=== PATIENT | male | born 1940 | race Caucasian/White ===

== ENCOUNTER 2016-10-07 18:00 | Inpatient (IN) | payer MEDICARE, OTHER ==
--- NOTE | 2016-10-07 18:21 | ER Document Report ---
Addendum entered and electronically signed by DEMETRI BURK NP 10/07/16 18:33 : Course - Re-evaluation Re-evalutation: 10/07/16 18:32 pt has increased confusion since the original fall on 09-25-16 - Vital Signs Vital signs: Temp Pulse Resp BP Pulse Ox 97.5 F 65 18 164/74 H 97 10/07/16 18:12 10/07/16 18:12 10/07/16 18:12 10/07/16 18:12 10/07/16 18:12 Original Note: ED Medical Screen (RME) - General Stated Complaint: RIGHT LEG PAIN/KNEE PAIN, SWELLING Time seen by provider: 18:21 Mode of Arrival: Wheelchair Information source: Patient Notes: 76-year-old male with progressive weakness post subdural brain hematoma , renal mass, (July 2004)in to the lower extremities is no longer able to use his walker. His is having to transfer from the wheelchair to the bed. Today he went to his primary care doctor for an evaluation for PT and OT. He is unable to do any kind of weightbearing and transfer. His primary care doctor sent him to the emergency room concerned about a possible spinal lesion. TRAVEL OUTSIDE OF THE [place] IN LAST 30 DAYS: No - Related Data Allergies/Adverse Reactions: No Known Allergies Allergy (Unverified 03/11/16 09:55) Past Medical History - Past Medical History Cardiac Medical History: Reports: Hx Heart Attack - 1998 , Hx Hypercholesterolemia, Hx Hypertension Denies: Hx Coronary Artery Disease Pulmonary Medical History: Denies: Hx Bronchitis, Hx COPD, Hx Pneumonia Neurological Medical History: Reports: Hx Cerebrovascular Accident - HEMORRHAGIC , RESIDUAL R HEMIPARESIS. Denies: Hx Seizures Endocrine Medical History: Reports: Hx Diabetes Mellitus Type 2 Musculoskeltal Medical History: Denies Hx Arthritis - Immunizations Hx Diphtheria, Pertussis, Tetanus Vaccination: No Physical Exam - Vital signs Vitals: Temp Pulse Resp BP Pulse Ox 97.5 F 65 18 164/74 H 97 10/07/16 18:12 10/07/16 18:12 10/07/16 18:12 10/07/16 18:12 10/07/16 18:12 Course - Vital Signs Vital signs: Temp Pulse Resp BP Pulse Ox 97.5 F 65 18 164/74 H 97 10/07/16 18:12 10/07/16 18:12 10/07/16 18:12 10/07/16 18:12 10/07/16 18:12
[2016-10-07] MEDS ORDERED: FENTANYL CITRATE INJ/PF 100 MCG/2 ML AMPUL IV ONE ×2 (20:38→22:40)
--- NOTE | 2016-10-07 20:40 | ER Document Report ---
ED Extremity Problem, Lower - General Chief Complaint: Leg Pain Stated Complaint: RIGHT LEG PAIN/KNEE PAIN, SWELLING Mode of Arrival: Wheelchair Information source: Patient Notes: Pt is a 76 year old male who presents to the ER TRAVEL OUTSIDE OF THE [place] IN LAST 30 DAYS: No - Related Data Allergies/Adverse Reactions: No Known Allergies Allergy (Unverified 03/11/16 09:55) Past Medical History - General Information source: Patient - Social History Smoking Status: Unknown if Ever Smoked Family History: Reviewed & Not Pertinent Patient has suicidal ideation: No Patient has homicidal ideation: No - Past Medical History Cardiac Medical History: Reports: Hx Heart Attack - 1998 , Hx Hypercholesterolemia, Hx Hypertension Denies: Hx Coronary Artery Disease Pulmonary Medical History: Denies: Hx Bronchitis, Hx COPD, Hx Pneumonia Neurological Medical History: Reports: Hx Cerebrovascular Accident - HEMORRHAGIC , RESIDUAL R HEMIPARESIS. Denies: Hx Seizures Endocrine Medical History: Reports: Hx Diabetes Mellitus Type 2 Musculoskeltal Medical History: Denies Hx Arthritis - Immunizations Hx Diphtheria, Pertussis, Tetanus Vaccination: No Hx Pneumococcal Vaccination: 09/28/10 Physical Exam - Vital signs Vitals: Temp Pulse Resp BP Pulse Ox 97.5 F 65 18 164/74 H 97 10/07/16 18:12 10/07/16 18:12 10/07/16 18:12 10/07/16 18:12 10/07/16 18:12 Course - Vital Signs Vital signs: Temp Pulse Resp BP Pulse Ox 97.5 F 65 18 164/74 H 97 10/07/16 18:12 10/07/16 18:12 10/07/16 18:12 10/07/16 18:12 10/07/16 18:12 - Laboratory Result Diagrams: 10/07/16 20:25 10/07/16 20:25
[2016-10-07 20:47] LABS: ABSOLUTE EOSINOPHILS # (AUTO) 0.2 10^3/uL (0.0-0.6); ABSOLUTE LYMPHOCYTES (AUTO) 1.1 10^3/uL (0.5-4.7); ABSOLUTE MONOCYTES (AUTO) 0.5 10^3/uL (0.1-1.4); ABSOLUTE NEUT (AUTO) 3.4 10^3/uL (1.7-8.2); BASOPHILS % (AUTO) 0.4 % (0-2); EOSINOPHILS % (AUTO) 3.9 % (0-6); LYMPHOCYTES % (AUTO) 20.8 % (13-45); MEAN CORPUSCULAR HEMOGLOBIN 29.9 pg (27.0-33.4); MEAN CORPUSCULAR HGB CONC 34.2 g/dL (32.0-36.0); MEAN CORPUSCULAR VOLUME 87 fl (80-97); MONOCYTES % (AUTO) 9.6 % (3-13); RED BLOOD COUNT 4.35 10^6/uL (4.35-5.55); RED CELL DISTRIBUTION WIDTH 14.8 % (11.5-14.0); SEGMENTED NEUTROPHILS % (AUTO) 65.3 % (42-78); WHITE BLOOD COUNT 5.2 10^3/uL (4.0-10.5)
[2016-10-07 20:55] LABS: PROTHROMBIN TIME 14.1 SEC (11.4-15.4)
[2016-10-07 21:01] LABS: ALANINE AMINOTRANSFERASE 63 U/L (21-72); ALBUMIN 3.9 g/dL (3.5-5.0); ALKALINE PHOSPHATASE 96 U/L (38-126); ANION GAP 14 (5-19); ASPARTATE AMINO TRANSFERASE 64 U/L (17-59); BILIRUBIN,TOTAL 0.6 mg/dL (0.2-1.3); BLOOD UREA NITROGEN 12 mg/dL (7-20); CALCIUM 10.2 mg/dL (8.4-10.2); CARBON DIOXIDE 25 mmol/L (22-30); CHLORIDE 104 mmol/L (98-107); CREATININE RESULT 0.73 mg/dL (0.52-1.25); GLUCOSE 118 mg/dL (75-110); MAGNESIUM 1.4 mg/dL (1.6-2.3); POTASSIUM 4.2 mmol/L (3.6-5.0); SODIUM 142.8 mmol/L (137-145); TOTAL PROTEIN 6.9 g/dL (6.3-8.2)
[2016-10-07 22:21] LABS: APPEARANCE,URINE CLEAR; BILIRUBIN,URINE NEGATIVE (NEGATIVE); GLUCOSE, URINE NEGATIVE (NEGATIVE); KETONES,URINE NEGATIVE (NEGATIVE); LEUKOCYTE ESTERASE,URINE NEGATIVE (NEGATIVE); NITRITE,URINE NEGATIVE (NEGATIVE); PROTEIN,URINE NEGATIVE (NEGATIVE); URINE SPECIFIC GRAVITY 1.004; UROBILINOGEN,URINE NEGATIVE mg/dL (<2.0)
--- NOTE | 2016-10-07 22:48 | ER Document Report ---
ED Extremity Problem, Lower - General Chief Complaint: Leg Pain Stated Complaint: RIGHT LEG PAIN/KNEE PAIN, SWELLING Mode of Arrival: Wheelchair Information source: Patient, Relative Notes: Pt is a 76-year-old male who is brought into the ER today for right hip and leg pain progressively worsening since a fall on September 25. He has seen his primary care provider who sent him to the emergency department today for an MRI to rule out spinal lesion causing Brown Sequard syndrome. Patient denies any numbness or tingling to the leg, paralysis of anywhere, any other trauma other than the fall on the . Family states that he was using a walker at home because he has a history of right-sided weakness from a subdural hematoma in 2003, but he is no longer able to ambulate at all due to the pain, even using walker and family is having to transfer him from sitting to the bed constantly and that he screams in pain each time. They denie that he's had any fever/ chills. They deny that he's had any loss of bladder or bowel function. TRAVEL OUTSIDE OF THE [place] IN LAST 30 DAYS: No - Related Data Allergies/Adverse Reactions: No Known Allergies Allergy (Unverified 03/11/16 09:55) Home Medications: Current Home Medications Aspirin [Aspirin 81 mg Chewable Tablet] 81 mg PO DAILY 10/08/16 [History] Atorvastatin Calcium [Lipitor 10 mg Tablet] 10 mg PO QHS 10/08/16 [History] Baclofen [Baclofen 10 mg Tablet] 10 mg PO TID 10/08/16 [History] Finasteride [Proscar 5 mg Tablet] 5 mg PO DAILY 10/08/16 [History] Glimepiride [Amaryl 1 mg Tablet] 1 mg PO BID 10/08/16 [History] Hydrocodone/Acetaminophen [[place] 5-325 mg Tablet] 1 tab PO Q6 10/08/16 [History] Losartan Potassium [Cozaar 50 mg Tablet] 50 mg PO DAILY 10/08/16 [History] Metformin HCl [Metformin HCl ER] 500 mg PO TID 10/08/16 [History] Metoprolol Tartrate [Lopressor 25 mg Tablet] 25 mg PO Q12 10/08/16 [History] Multivitamin [Daily Multiple Vitamin] 1 tab PO DAILY 10/08/16 [History] Niacin (Inositol Niacinate) [Niacin 500 mg Capsule] 1,000 mg PO QHS 10/08/16 [ History] [place]-3 Fatty Acids/Fish Oil [[place]-3 1,000 Mg Softgel] 1,000 cap PO DAILY 10/08 [History] Sertraline HCl [Zoloft 50 mg Tablet] 50 mg PO DAILY 10/08/16 [History] Past Medical History - General Information source: Patient - Social History Smoking Status: Unknown if Ever Smoked Family History: Reviewed & Not Pertinent Patient has suicidal ideation: No Patient has homicidal ideation: No - Past Medical History Cardiac Medical History: Reports: Hx Heart Attack - 1998 , Hx Hypercholesterolemia, Hx Hypertension Denies: Hx Coronary Artery Disease Pulmonary Medical History: Denies: Hx Bronchitis, Hx COPD, Hx Pneumonia Neurological Medical History: Reports: Hx Cerebrovascular Accident - HEMORRHAGIC , RESIDUAL R HEMIPARESIS. Denies: Hx Seizures Endocrine Medical History: Reports: Hx Diabetes Mellitus Type 2 Musculoskeltal Medical History: Denies Hx Arthritis - Immunizations Hx Diphtheria, Pertussis, Tetanus Vaccination: No Hx Pneumococcal Vaccination: 09/28/10 Review of Systems - Review of Systems Constitutional: No symptoms reported EENT: No symptoms reported Cardiovascular: No symptoms reported Respiratory: No symptoms reported Gastrointestinal: No symptoms reported Genitourinary: No symptoms reported Male Genitourinary: No symptoms reported Musculoskeletal: See HPI Skin: No symptoms reported Hematologic/Lymphatic: No symptoms reported Neurological/Psychological: No symptoms reported Physical Exam - Vital signs Vitals: Temp Pulse Resp BP Pulse Ox 97.5 F 65 18 164/74 H 97 10/07/16 18:12 10/07/16 18:12 10/07/16 18:12 10/07/16 18:12 10/07/16 18:12 - Notes Notes: PHYSICAL EXAMINATION: GENERAL: Appears uncomfortable, otherwise in no acute distress. HEAD: Atraumatic, normocephalic. EYES: Pupils equal round and reactive to light, extraocular movements intact, sclera anicteric, conjunctiva are normal. NECK: Normal range of motion, supple without lymphadenopathy LUNGS: CTAB and equal. No wheezes rales or rhonchi. HEART: Regular rate and rhythm without murmurs ABDOMEN: Soft, no tenderness. No guarding, no rebound BACK: Lumbar vertebral tenderness, normal ROM GI/: no CVA tenderness EXTREMITIES: tender to entirety of lateral right hip, upper and lower leg, decreased range of motion secondary to pain, no pitting edema. No cyanosis. NEUROLOGICAL: Cranial nerves grossly intact. Normal sensory/motor exams. PSYCH: Normal mood, normal affect. SKIN: Warm, Dry, normal turgor, no rashes or lesions noted Course - Re-evaluation Re-evalutation: 10/07/16 22:46 [facility] was called where pt had subdural evacuation in 2003 and they state that no stents/shunts were placed at all during surgery for this. Pt is on his way to MRI now to rule out lesion causing progressive leg pain. Pt tolerated fentanyl well and it helped with pain. 10/08/16 00:25 MRI was attempted multiple times tonight after giving the patient fentanyl, dilaudid, ativan and we were going to try versed, but pt could not be monitored while inside MRI machine. All of these attempts failed as patient would not sit still for MRI and screamed the entire time. At this time family is refusing to take him home, stating that they "can't handle him." labwork was ordered before I got him and all unremarkable. Pt hasn't however had actual hip, femur or tib fib x rays and so at this time I have ordered x rays of those things to make sure we haven't missed anything. 10/08/16 00:42 10/08/16 02:00 x rays of hip, femur and tib/fib report a femoral neck fracture with slight lateral displacement and a possible fib fracture. Ortho called at this time and agrees that patient meets criteria for admission. 10/08/16 02:26 - Vital Signs Vital signs: Temp Pulse Resp BP Pulse Ox 97.6 F 79 18 148/54 H 98 10/08/16 16:36 10/08/16 16:36 10/08/16 16:36 10/08/16 16:36 10/08/16 16:36 - Laboratory Result Diagrams: 10/08/16 09:44 10/07/16 20:25 Laboratory results interpreted by me: 10/07/16 10/07/16 10/08/16 20:25 20:25 07:22 Hgb 13.0 L RDW 14.8 H Plt Count 49 L Glucose 118 H POC Glucose 149 H Magnesium 1.4 L AST 64 H Discharge - Discharge Clinical Impression: Femoral neck fracture Qualifiers: Encounter type: initial encounter Fracture type: closed Laterality: right Qualified Code(s): S72.001A - Fracture of unspecified part of neck of right femur, initial encounter for closed fracture Condition: Stable Disposition: ADMITTED INPATIENT Admitting Provider: Hospitalist Unit Admitted: Medical Floor
[2016-10-07] MEDS ORDERED: MIDAZOLAM 2 MG/2 ML INJ IV ONE (22:57)
[2016-10-07] MEDS ORDERED: LORAZEPAM INJ 2 MG/1 ML VIAL IV ONE (23:13)
[2016-10-07] MEDS ORDERED: HYDROMORPHONE HCL INJ/PF 2 MG/ML AMPULE IV ONE (23:32)
[2016-10-08] MEDS ORDERED: MAGNESIUM SULFATE/D5W 1 GM/100 ML RTUPB IV ONE (06:14)
[2016-10-08] MEDS ORDERED: DEXTROSE 50%-WATER 25 GM/50 ML DISP.SYRIN IV PRN ×2 (08:43)
[2016-10-08] MEDS ORDERED: GLUCAGON,HUMAN RECOMB 1 MG INJ IM PRN (08:43)
[2016-10-08] MEDS ORDERED: DEXTROSE 40% GEL 15 GM TUBE PO PRN ×2 (08:43)
[2016-10-08] MEDS ORDERED: INSULIN LISPRO 100 UNIT/ML 3 ML VIAL SUBCUT PRN (08:43)
[2016-10-08] MEDS ORDERED: ACETAMINOPHEN 650 MG SUPP.RECT PR PRN (08:55)
--- NOTE | 2016-10-08 09:49 | PDOC H&P ---
History of Present Illness Admission Date/PCP: 10/08/16 02:36 KAVON PULLIAM MD Patient complains of: right hip and leg pain History of Present Illness: TRACI FLORES is a 76 year old male sent to the emergency room by his primary care provider for concern of a possible spinal cord injury/lesion causing the above complaints. Patient has been discussed with emergency room nurse practitioner who evaluated the patient. At no point during this discussion was there any mention made of concern for possible problem with patient's spinal cord. This information was noted upon review of his paper chart after the patient had been admitted to the hospitalist service and was on the floor. Patient was presented as a basic fall with hip fracture. Prior to my being called, nurse practitioner had discussed the patient with on-call orthopedist, who has agreed to manage the patient's orthopedic injuries. Patient is sedated and is able to provide no history whatsoever in terms of acute or chronic events, review of systems, personal habits, family history, etc. No friends or family are present. No Old inpatient records are available for review.. According to emergency room notes, patient has a history of a subdural hematoma in 2003, with resulting right-sided weakness, normally able to ambulate with a walker. Patient suffered a fall September 25 and has had progressive pain involving his right hip and leg, now to the point where he simply is not able to ambulate at all. Please refer to emergency room notes, which are reviewed. Laboratory results are listed in [facility] and are reviewed. X-ray summary results are listed below, with full report(s) reviewed. . EKG reviewed and compared to prior tracing from March 11 of last year. Social history/personal habits: Information not available this point in time. Family History : Information not available this point in time. Allergies/adverse reactions NKDA. Home medications are reviewed from the list compiled in [facility].. Home medications initially autopopulated into [facility] may not accurately reflect patient's true medications, dosages, and/or frequencies. REVIEW OF SYSTEMS: See history and present illness. No further information available this point in time. PHYSICAL EXAMINATION: 5 feet 11 inches tall. 99.5 kg. BMI 30.6 kg/m. Blood pressure 130/57. Pulse 87 and regular. 90% saturation on 2 L oxygen per nasal cannula. Respirations are 16 and unlabored. Temperature 98.2. Obese otherwise well-developed male appearing in number of views younger than his stated age. Somnolent. Does awaken briefly when spoken to in a normal volume voice, but fairly quickly falls back asleep. Maintaining his airway well. Skin is warm and dry. No grossly obvious evidence of rash in areas of skin examined. No subcutaneous nodules palpated. ENT: Hearing grossly normal to normal conversation. Will not protrude tongue on request. Eyes: No scleral icterus. Pupils equal and reactive to light at 4 mm. [place] conjunctivae. No raccoon eyes. Neck is nontender to palpation. Midline trachea. No palpable thyroid nodule mass enlargement or tenderness. Lymphatic: No palpable cervical or clavicular nodes. Neck and lymphatic exams limited by patient body habitus. Psychiatric: Can't be adequately evaluated due to his current status. Lungs: Auscultation reveals clear and equal breath sounds bilaterally. No use of accessory respiratory muscles. Cardiovascular: Heart regular rate and rhythm, without gallop murmur or rub. No carotid or abdominal aortic bruits. No ankle or pedal edema. Faintly palpable dorsalis pedis pulses. Abdomen: soft, somewhat obese, nontender with positive bowel sounds. Unable to adequately evaluate abdomen for masses or organomegaly due to body habitus. Extremities: [Feet are warm and dry. No calf tenderness to compression. No grossly obvious visual evidence of calf swelling. Manipulation of right lower extremity not attempted due to his injury; similar limitation on manipulation of left lower extremity, with any movement at all of the site of injury causing pronounced pain. Neurologic: Absent Babinski. Light touch can't be adequately evaluated due to his current status. Past Medical History Cardiac Medical History: Reports: Myocardial Infarction - 1998 , Hyperlipidema, Hypertension Denies: Coronary Artery Disease Pulmonary Medical History: Denies: Bronchitis, Chronic Obstructive Pulmonary Disease (COPD), Pneumonia Neurological Medical History: Denies: Seizures Endocrine Medical History: Reports: Diabetes Mellitus Type 2 Musculoskeltal Medical History: Denies: Arthritis Hematology: Reports: Anemia Social History Information Source: Emergency Med Personnel, [facility] Records Smoking Status: Unknown if Ever Smoked - Advance Directive Resuscitation Status: Full Code Surrogate healthcare decision maker:: Uncertain at this point in time. Family History Family History: Reviewed & Not Pertinent Parental Family History Reviewed: No - no information available this point in time. Children Family History Reviewed: No Sibling(s) Family History Reviewed.: No Medication/Allergy Home Medications: Aspirin [Aspirin 81 mg Chewable Tablet] 81 mg PO DAILY 10/08/16 Atorvastatin Calcium [Lipitor 10 mg Tablet] 10 mg PO QHS 10/08/16 Baclofen [Baclofen 10 mg Tablet] 10 mg PO TID 10/08/16 Finasteride [Proscar 5 mg Tablet] 5 mg PO DAILY 10/08/16 Glimepiride [Amaryl 1 mg Tablet] 1 mg PO BID 10/08/16 Hydrocodone/Acetaminophen [[place] 5-325 mg Tablet] 1 tab PO Q6 10/08/16 Losartan Potassium [Cozaar 50 mg Tablet] 50 mg PO DAILY 10/08/16 Metformin HCl [Metformin HCl ER] 500 mg PO TID 10/08/16 Metoprolol Tartrate [Lopressor 25 mg Tablet] 25 mg PO Q12 10/08/16 Multivitamin [Daily Multiple Vitamin] 1 tab PO DAILY 10/08/16 Niacin (Inositol Niacinate) [Niacin 500 mg Capsule] 1,000 mg PO QHS 10/08/16 [place]-3 Fatty Acids/Fish Oil [[place]-3 1,000 Mg Softgel] 1,000 cap PO DAILY 10/08 Sertraline HCl [Zoloft 50 mg Tablet] 50 mg PO DAILY 10/08/16 Allergies/Adverse Reactions: No Known Allergies Allergy (Unverified 03/11/16 09:55) Physical Exam Vital Signs: Temp Pulse Resp BP Pulse Ox 98.0 F 100 16 122/62 96 10/08/16 07:48 10/08/16 07:48 10/08/16 07:48 10/08/16 07:48 10/08/16 07:48 Results Impressions: Hip/Pelvis X-Ray 10/08/16 00:33 IMPRESSION: Subcapital fracture of the right femoral neck. Femur X-Ray 10/08/16 00:39 IMPRESSION: The femoral shaft is intact. Tibia/Fibula X-Ray 10/08/16 00:39 IMPRESSION: Linear lucency along the distal fibular incompletely imaged. Assessment & Plan - Diagnosis (1) Elevated LFTs Is this a current diagnosis for this admission?: YesPlan: Mild; history of same by review of old lab values. Uncertain etiology. (2) Fracture of femoral neck, right Qualifiers: Encounter type: initial encounter Fracture type: closed Qualified Code(s): S72.001A - Fracture of unspecified part of neck of right femur, initial encounter for closed fracture Is this a current diagnosis for this admission?: YesPlan: Orthopedics consult. Knee high SCDs for DVT prophylaxis; with thrombocytopenia, will forego Lovenox or heparin at this point in time. Due to [employer] downtime, basic handwritten order packet was utilized and faxed earlier to patient's inpatient san. Time spent in evaluation and management of patient: 65 minutes. (3) Hypomagnesemia Is this a current diagnosis for this admission?: YesPlan: Magnesium supplement. (4) Thrombocytopenia Is this a current diagnosis for this admission?: YesPlan: Hematology consult. (5) Brown-Sequard syndrome Is this a current diagnosis for this admission?: YesPlan: Due to his level of sedation, adequate neurologic exam cannot be accomplished. At 5:17 AM, 10/08/2016, voicemail was left with Dr. Han, water pollution scientist neurology at our facility. 5:20 AM, I spoke with the transfer center at [facility], requesting telephone consult with the on-call neurologist. At 5:30 AM, patient was discussed in detail with Dr. Strauss, on-call neurologist at [facility]. He felt that with the length of time between patient's likely initial injury and the present time, that urgent imaging was not warranted. He agreed with plans to obtain local neurology consult for evaluation after the patient was more lucid and alert. At 6 AM, patient was discussed in detail by telephone with Dr. Han, on-call neurologist at our facility. He has agreed to see the patient in consultation. He also agreed with recommendations made by the above neurologist from [facility]. Orders have been entered and discussed with nursing staff to maintain spine precautions, logroll only, with Blackwell collar. Patient has been discussed in detail with daytime hospitalist team. (6) Right fibular fracture Qualifiers: Encounter type: initial encounter Fracture type: closed Fracture morphology: unspecified fracture morphology Is this a current diagnosis for this admission?: Yes - Inpatient Certification Based on my medical assessment, after consideration of the patient's comorbidities, presenting symptoms, or acuity I expect that the services needed warrant INPATIENT care.: Yes I certify that my determination is in accordance with my understanding of Medicare's requirements for reasonable and necessary INPATIENT services [42 CFR 412.3e].: Yes Medical Necessity: Need For Continuous Telemetry Monitoring, Need for Pain Control, Need for Surgery, Risk of Complication if Not Cared For in Hospital, Risk of Diagnosis Which Will Require Inpatient Eval/Care/Monitoring Post Hospital Care: D/C or Transfer Summary
[2016-10-08 09:54] LABS: HEMATOCRIT 37.3 % (37.9-51.0); HEMOGLOBIN 12.9 g/dL (13.5-17.0); HGB HCT DIFFERENCE 1.4; MEAN CORPUSCULAR HEMOGLOBIN 30.2 pg (27.0-33.4); MEAN CORPUSCULAR HGB CONC 34.5 g/dL (32.0-36.0); MEAN CORPUSCULAR VOLUME 87 fl (80-97); RED BLOOD COUNT 4.27 10^6/uL (4.35-5.55); RED CELL DISTRIBUTION WIDTH 14.8 % (11.5-14.0); WHITE BLOOD COUNT 4.9 10^3/uL (4.0-10.5)
[2016-10-08] MEDS ORDERED: MORPHINE SULFATE 10 MG/ML INJ IV ONE (13:00)
--- NOTE | 2016-10-08 13:37 | EKG REPORT ---
SEVERITY:- ABNORMAL ECG - SINUS RHYTHM LVH WITH SECONDARY REPOLARIZATION ABNORMALITY : Confirmed by: Manisha Ley MD 08-Oct-2016 13:37:18
[2016-10-08] MEDS: MORPHINE SULFATE 10 MG/ML INJ IV PRN (16:57)
--- NOTE | 2016-10-08 17:45 | PDOC PROGRESS REPORT ---
Subjective Progress Note for:: 10/08/16 Subjective:: History of Present Illness: TRACI FLORES is a 76 year old male sent to the emergency room by his primary care provider for concern of a possible spinal cord injury/lesion causing the above complaints. Patient was presented as a basic fall with hip fracture. At no point during this discussion was there any mention made of concern for possible problem with patient's spinal cord. This information was noted upon review of his paper chart after the patient had been admitted to the hospitalist service and was on the floor. Prior to my being called, nurse practitioner had discussed the patient with on-call orthopedist, who has agreed to manage the patient's orthopedic injuries. According to emergency room notes, patient has a history of a subdural hematoma in 2003, with resulting right-sided weakness, normally able to ambulate with a walker. Patient suffered a fall September 25 and has had progressive pain involving his right hip and leg, now to the point where he simply is not able to ambulate at all. 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 Daughter goes on to report the discoloration fits pattern of the patient's shorts he wheres to his Grandson's every outdoor sporting activity and is unchanged from this past Summer. Physical Exam Vital Signs: Temp Pulse Resp BP Pulse Ox 98.0 F 100 16 122/62 96 10/08/16 07:48 10/08/16 07:48 10/08/16 07:48 10/08/16 07:48 10/08/16 07:48 General appearance: ABSENT: no acute distress Eye exam: PRESENT: EOMI, PERRLA. ABSENT: conjunctival injection, nystagmus Mouth exam: PRESENT: moist, neck supple - Collar in place Respiratory exam: PRESENT: clear to auscultation pam, unlabored. ABSENT: accessory muscle use Pulses: PRESENT: normal radial pulses, normal dorsalis pedis pul GI/Abdominal exam: PRESENT: normal bowel sounds, soft. ABSENT: tenderness Musculoskeletal exam: PRESENT: other - No step-off deformities, areas of ecchymosis, or swelling. ABSENT: full ROM - to weakness of the Rtd Neurological exam: PRESENT: alert, awake, oriented to person, oriented to place , oriented to situation, other - right facial droop and blunting of the nasolabial fold; Rt arm and leg 2/5 strength with decreased muscle tone.. ABSENT: oriented to time Psychiatric exam: PRESENT: appropriate affect, normal mood Skin exam: PRESENT: dry, warm Results Laboratory Results: 10/08/16 09:44 10/08/16 10/08/16 09:44 09:44 WBC 4.9 RBC 4.27 L Hgb 12.9 L Hct 37.3 L MCV 87 MCH 30.2 MCHC 34.5 RDW 14.8 H Plt Count 55 L Magnesium 1.7 Impressions: Hip/Pelvis X-Ray 10/08/16 00:33 IMPRESSION: Subcapital fracture of the right femoral neck. Femur X-Ray 10/08/16 00:39 IMPRESSION: The femoral shaft is intact. Tibia/Fibula X-Ray 10/08/16 00:39 IMPRESSION: Linear lucency along the distal fibular incompletely imaged. Assessment & Plan - Diagnosis (1) Fracture of femoral neck, right Qualifiers: Encounter type: initial encounter Fracture type: closed Qualified Code(s): S72.001A - Fracture of unspecified part of neck of right femur, initial encounter for closed fracture Is this a current diagnosis for this admission?: YesPlan: Dr. Brock consulted (2) Right fibular fracture Qualifiers: Encounter type: initial encounter Fracture type: closed Fracture morphology: unspecified fracture morphology Is this a current diagnosis for this admission?: YesPlan: Possible radiographic artifact. Defer to orthopedic surgery for further evaluation. (3) Elevated LFTs Is this a current diagnosis for this admission?: YesPlan: Mild and of unclear significance. Trend. (4) Hypomagnesemia Is this a current diagnosis for this admission?: YesPlan: Replace and monitor (5) Thrombocytopenia Is this a current diagnosis for this admission?: YesPlan: Hematology consulted. Apparently a chronic problem for him. Etiology unclear but may need transfusion prior to surgery. 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 At baseline. (7) Brown-Sequard syndrome Is this a current diagnosis for this admission?: NoPlan: Ruled out. Neurology consult and does not feel his clinical condition fits with this syndrome. Okay to remove soft collar and DC spine precautions. - Time Time Spent with patient: 35 or more minutes Disposition: Will likely need rehabilitation placement
--- NOTE | 2016-10-08 18:03 | CONSULTATION REPORT E ---
Consultation Report NAME: TRACI FLORES : 1940 AGE: 76Y DATE: 10/08/2016 434 A TO: AMIRA KEBEED M.D. FROM: DINORA GRULLON M.D. Requesting Physician REASON FOR REFERRAL: Thrombocytopenia. HISTORY OF PRESENT ILLNESS: The patient is a 76-year-old man who was admitted on 10/08/2016. Reason for admission is history of fall with possible hip fracture. He was noted on admission to have a low platelet count. He was a 76-year-old man who has had progressively worsening pain in the right hip and leg following a fall on 09/25/2016. His [id number] who was sitting at his bedside today explained to me that he has always had thrombocytopenia and was followed a hematemesis, Dr. Whitt in [place]. She is not exactly sure of how low his platelet count has been. His has more information with regards to that. It has not been noted at home that he was bleeding or bruising more easily. PAST MEDICAL HISTORY: As stated above includes: 1. History of thrombocytopenia. 2. He had a heart attack in 1998. 3. History of hypercholesterolemia. 4. History of coronary artery disease. 5. Bronchitis. 6. COPD. REVIEW OF SYSTEMS: As stated above. PHYSICAL EXAMINATION: GENERAL: On exam, he is an elderly man. He is alert and he answers a few questions. LABORATORY: White count 5.2, hemoglobin 13, platelet count 49,000. IMPRESSION AND PLAN: The patient is a 76-year-old man with a history of thrombocytopenia, this appears to be chronic. I will try and obtain his records from [place] to shed more light as to the workup that has been done in the past and the etiology of his thrombocytopenia. In the interim, I will suggest antiplatelet antibodies be requested. He is yet to be seen by orthopedics. His surgery is planned. He will most probably need a platelet count of 75,000 or greater. I will see what therapy he has received in the past, if he has been transfused successfully with platelets. I explained this to the [id number] and to the patient. I will see him back as needed. I thank you for this consultation and allowing me to be part of his care. DICTATING PHYSICIAN: AMIRA KEBEDE M.D. [id number] PHY#: [id number] ID: [id number] JOB#: [id number] ACCT: [id number] cc:AMIRA KEBEDE M.D. >
[2016-10-08] MEDS: ATORVASTATIN CALCIUM 10 MG TABLET PO SCH (21:52)
[2016-10-08] MEDS: METOPROLOL TARTRATE 25 MG TABLET PO SCH (21:52)
--- NOTE | 2016-10-08 21:58 | PDOC CONSULTATION ---
History of Present Illness Admission Date/PCP: 10/08/16 08:42 KAVON PULLIAM MD Patient complains of: Right hip pain History of Present Illness: TRACI FLORES is a 76 year old male sent to the emergency room by his primary care provider for concern of a possible spinal cord injury/lesion causing the above complaints. A complete history limited given patient's dementia. Patient's son at bedside. According to the son he sustained a fall onto concrete on his right hip on . Patient was seen at the emergency room where no underlying traumatic fractures were identified. Since that point they had been transferring him from bed to a wheelchair. Until the past few days he has been complaining more and more of right lower extremity pain. According to the patient's son he is relatively nonambulatory but has been complaining of fairly severe pain with any motion of the hip which has improved with rest and medication. Past Medical History Cardiac Medical History: Reports: Myocardial Infarction - 1998 , Hyperlipidema, Hypertension Denies: Coronary Artery Disease Pulmonary Medical History: Denies: Bronchitis, Chronic Obstructive Pulmonary Disease (COPD), Pneumonia Neurological Medical History: Denies: Seizures Endocrine Medical History: Reports: Diabetes Mellitus Type 2 Musculoskeltal Medical History: Denies: Arthritis Hematology: Reports: Anemia Social History Smoking Status: Unknown if Ever Smoked - Advance Directive Resuscitation Status: Full Code Family History Family History: Reviewed & Not Pertinent Parental Family History Reviewed: No Children Family History Reviewed: No Sibling(s) Family History Reviewed.: No Medication/Allergy Home Medications: Aspirin [Aspirin 81 mg Chewable Tablet] 81 mg PO DAILY 10/08/16 Atorvastatin Calcium [Lipitor 10 mg Tablet] 10 mg PO QHS 10/08/16 Baclofen [Baclofen 10 mg Tablet] 10 mg PO TID 10/08/16 Finasteride [Proscar 5 mg Tablet] 5 mg PO DAILY 10/08/16 Glimepiride [Amaryl 1 mg Tablet] 1 mg PO BID 10/08/16 Hydrocodone/Acetaminophen [S [place] 5-325 mg Tablet] 1 tab PO Q6 10/08/16 Losartan Potassium [Cozaar 50 mg Tablet] 50 mg PO DAILY 10/08/16 Metformin HCl [Metformin HCl ER] 500 mg PO TID 10/08/16 Metoprolol Tartrate [Lopressor 25 mg Tablet] 25 mg PO Q12 10/08/16 Multivitamin [Daily Multiple Vitamin] 1 tab PO DAILY 10/08/16 Niacin (Inositol Niacinate) [Niacin 500 mg Capsule] 1,000 mg PO QHS 10/08/16 [place]-3 Fatty Acids/Fish Oil [[place]-3 1,000 Mg Softgel] 1,000 cap PO DAILY 10/08 Sertraline HCl [Zoloft 50 mg Tablet] 50 mg PO DAILY 10/08/16 Allergies/Adverse Reactions: No Known Allergies Allergy (Unverified 03/11/16 09:55) Review of Systems ROS unobtainable: Due to mental status Physical Exam Vital Signs: Temp Pulse Resp BP Pulse Ox 98.0 F 92 20 151/62 H 95 10/08/16 20:02 10/08/16 20:02 10/08/16 20:02 10/08/16 20:02 10/08/16 20:02 Intake & Output 10/07/16 10/08/16 10/09/16 06:59 06:59 06:59 Intake Total 784 Balance 784 General appearance: PRESENT: no acute distress, cooperative Head exam: PRESENT: atraumatic, normocephalic Eye exam: PRESENT: other - sclerae anicteric, conjunctival normal Ear exam: PRESENT: normal external ear exam Mouth exam: PRESENT: moist, tongue midline Neck exam: PRESENT: full ROM. ABSENT: carotid bruit, JVD, lymphadenopathy, thyromegaly Respiratory exam: PRESENT: unlabored Cardiovascular exam: PRESENT: RRR. ABSENT: diastolic murmur, rubs, systolic murmur Pulses: PRESENT: normal dorsalis pedis pul, +2 pedal pulses bilateral Vascular exam: PRESENT: normal capillary refill GI/Abdominal exam: PRESENT: normal bowel sounds, soft. ABSENT: distended, guarding, mass, organolmegaly, rebound, tenderness Rectal exam: PRESENT: deferred Musculoskeletal exam: PRESENT: other - Right lower extremity short and externally rotated. Positive log roll. Limited neurologic examination secondary to patient's pain. Patient has tenderness along the distal fibula. With mild swelling. No evidence of skin breakdown. No calf tenderness. Neurological exam: PRESENT: alert, awake, oriented to person, oriented to place. ABSENT: motor sensory deficit Psychiatric exam: PRESENT: appropriate affect, normal mood. ABSENT: homicidal ideation, suicidal ideation Skin exam: PRESENT: dry, intact, warm. ABSENT: cyanosis, rash Results Laboratory Results: 10/08/16 09:44 10/08/16 10/08/16 09:44 09:44 WBC 4.9 RBC 4.27 L Hgb 12.9 L Hct 37.3 L MCV 87 MCH 30.2 MCHC 34.5 RDW 14.8 H Plt Count 55 L Magnesium 1.7 Impressions: Hip/Pelvis X-Ray 10/08/16 00:33 IMPRESSION: Subcapital fracture of the right femoral neck. Femur X-Ray 10/08/16 00:39 IMPRESSION: The femoral shaft is intact. Tibia/Fibula X-Ray 10/08/16 00:39 IMPRESSION: Linear lucency along the distal fibular incompletely imaged. Status: Image reviewed by me - I have reviewed patient's radiographs which are limited but do demonstrate right displaced femoral neck fracture. Question distal fibula fracture which may be secondary to possible artifact. Assessment & Plan - Diagnosis (1) Fracture of femoral neck, right Qualifiers: Encounter type: initial encounter Fracture type: closed Qualified Code(s): S72.001A - Fracture of unspecified part of neck of right femur, initial encounter for closed fracture Is this a current diagnosis for this admission?: YesPlan: At this point given the patient's pain consideration for operative intervention is reasonable. I discussed possible treatment with the patient's son including nonoperative versus operative intervention. After discussing risks and benefits of the procedure and the details of the procedure patient's family is verbalizes understanding. Risks include anesthetic complications, excessive bleeding, infection, injury to surrounding nerves, vessels and tendons, bruising , healing difficulties, scar formation, posttraumatic arthritis and any unforseen complication. Also patient has evidence of thrombocytopenia which further increases his risk of bleeding intraoperatively prior to proceed with operative intervention we would like his platelet count to be 75 and thus we will continue to monitor this and his other medical issues. Once he is medically optimized we will proceed with operative intervention. Current plan is possible surgery Thursday or Thursday. (2) Right fibular fracture Qualifiers: Encounter type: initial encounter Fracture type: closed Fracture morphology: unspecified fracture morphology Is this a current diagnosis for this admission?: Yes
[2016-10-09] MEDS: MORPHINE SULFATE 10 MG/ML INJ IV PRN (02:15)
[2016-10-09 06:49] LABS: HEMATOCRIT 39.3 % (37.9-51.0); HEMOGLOBIN 13.4 g/dL (13.5-17.0); HGB HCT DIFFERENCE 0.9; MEAN CORPUSCULAR HEMOGLOBIN 30.1 pg (27.0-33.4); MEAN CORPUSCULAR HGB CONC 34.2 g/dL (32.0-36.0); MEAN CORPUSCULAR VOLUME 88 fl (80-97); RED BLOOD COUNT 4.45 10^6/uL (4.35-5.55); RED CELL DISTRIBUTION WIDTH 14.5 % (11.5-14.0); WHITE BLOOD COUNT 7.9 10^3/uL (4.0-10.5)
[2016-10-09 07:11] LABS: ALANINE AMINOTRANSFERASE 57 U/L (21-72); ALBUMIN 3.6 g/dL (3.5-5.0); ALKALINE PHOSPHATASE 93 U/L (38-126); ANION GAP 10 (5-19); ASPARTATE AMINO TRANSFERASE 72 U/L (17-59); BILIRUBIN,TOTAL 0.7 mg/dL (0.2-1.3); BLOOD UREA NITROGEN 12 mg/dL (7-20); CALCIUM 9.7 mg/dL (8.4-10.2); CARBON DIOXIDE 30 mmol/L (22-30); CHLORIDE 102 mmol/L (98-107); CREATININE RESULT 0.74 mg/dL (0.52-1.25); GLUCOSE 126 mg/dL (75-110); MAGNESIUM 1.6 mg/dL (1.6-2.3); POTASSIUM 4.3 mmol/L (3.6-5.0); SODIUM 142.3 mmol/L (137-145); TOTAL PROTEIN 6.6 g/dL (6.3-8.2)
[2016-10-09] MEDS: MULTIVITAMIN TABLET PO SCH (10:47)
[2016-10-09] MEDS: ASPIRIN 81 MG TABLET, CHEWABLE PO SCH (10:47)
[2016-10-09] MEDS: LOSARTAN POTASSIUM 50 MG TABLET PO SCH (10:48)
[2016-10-09] MEDS: SERTRALINE HCL 50 MG TABLET PO SCH (10:49)
[2016-10-09] MEDS: METOPROLOL TARTRATE 25 MG TABLET PO SCH ×2 (10:49→22:25)
[2016-10-09] MEDS: BACLOFEN 10 MG TABLET PO SCH ×2 (10:49→18:47)
[2016-10-09] MEDS: FINASTERIDE 5 MG TABLET PO SCH (10:50)
[2016-10-09] MEDS: GLIMEPIRIDE 1 MG TABLET PO SCH ×2 (10:50→18:47)
--- NOTE | 2016-10-09 14:25 | PDOC PROGRESS REPORT ---
Subjective Progress Note for:: 10/09/16 Subjective:: History of Present Illness: TRACI FLORES is a 76 year old male sent to the emergency room by his primary care provider for concern of a possible spinal cord injury/lesion causing the above complaints. Patient was presented as a basic fall with hip fracture. At no point during this discussion was there any mention made of concern for possible problem with patient's spinal cord. This information was noted upon review of his paper chart after the patient had been admitted to the hospitalist service and was on the floor. Prior to my being called, nurse practitioner had discussed the patient with on-call orthopedist, who has agreed to manage the patient's orthopedic injuries. According to emergency room notes, patient has a history of a subdural hematoma in 2003, with resulting right-sided weakness, normally able to ambulate with a walker. Patient suffered a fall September 25 and has had progressive pain involving his right hip and leg, now to the point where he simply is not able to ambulate at all. 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 Daughter goes on to report the discoloration fits pattern of the patient's shorts he wheres to his Grandson's every outdoor sporting activity and is unchanged from this past Summer. He's been evaluated by orthopedic surgery and anticipates surgical correction of his fracture on Thursday. He's been evaluated by hematology recommending transfusion as needed perioperatively to keep his platelets greater than 75, 000. He's been evaluated by anesthesiology and is recommending echocardiogram preop. Overall his condition is stabilized his pain is reasonably well controlled. His mental state appears to be at baseline according to the family report to the nurse. Physical Exam Vital Signs: Temp Pulse Resp BP Pulse Ox 97.3 F 70 18 133/63 H 98 10/09/16 08:32 10/09/16 08:32 10/09/16 08:32 10/09/16 08:32 10/09/16 08:32 Intake & Output 10/08/16 10/09/16 10/10/16 06:59 06:59 06:59 Intake Total 1684 Output Total 1100 Balance 584 General appearance: PRESENT: no acute distress, cooperative Head exam: PRESENT: atraumatic, normocephalic Eye exam: PRESENT: EOMI, PERRLA. ABSENT: conjunctival injection Mouth exam: PRESENT: moist, neck supple, tongue midline Respiratory exam: PRESENT: clear to auscultation pam, unlabored. ABSENT: accessory muscle use Cardiovascular exam: PRESENT: RRR. ABSENT: systolic murmur Pulses: PRESENT: normal carotid pulses, normal radial pulses, normal dorsalis pedis pul GI/Abdominal exam: PRESENT: normal bowel sounds, soft. ABSENT: tenderness Extremities exam: PRESENT: tenderness - Any attempted range of motion on the right.. ABSENT: pedal edema Musculoskeletal exam: PRESENT: normal inspection - Normal gross visual inspection with no step-off deformity, ecchymosis, swelling. Neurological exam: PRESENT: alert, awake, oriented to person, oriented to place Psychiatric exam: PRESENT: appropriate affect, normal mood Skin exam: PRESENT: warm. ABSENT: skin tears Results Laboratory Results: 10/09/16 06:01 10/09/16 06:01 10/09/16 10/09/16 06:01 06:01 WBC 7.9 RBC 4.45 Hgb 13.4 L Hct 39.3 MCV 88 MCH 30.1 MCHC 34.2 RDW 14.5 H Plt Count 65 L Sodium 142.3 Potassium 4.3 Chloride 102 Carbon Dioxide 30 Anion Gap 10 BUN 12 Creatinine 0.74 Est GFR ( Amer) > 60 Est GFR (Non-Af Amer) > 60 Glucose 126 H Calcium 9.7 Magnesium 1.6 Total Bilirubin 0.7 AST 72 H ALT 57 Alkaline Phosphatase 93 Total Protein 6.6 Albumin 3.6 Impressions: Ankle X-Ray 10/08/16 00:00 IMPRESSION: No acute fracture. Suspected fracture from the previous day related to artifact. Hip/Pelvis X-Ray 10/08/16 00:33 IMPRESSION: Subcapital fracture of the right femoral neck. Femur X-Ray 10/08/16 00:39 IMPRESSION: The femoral shaft is intact. Tibia/Fibula X-Ray 10/08/16 00:39 IMPRESSION: Linear lucency along the distal fibular incompletely imaged. Assessment & Plan - Diagnosis (1) Fracture of femoral neck, right Qualifiers: Encounter type: initial encounter Fracture type: closed Qualified Code(s): S72.001A - Fracture of unspecified part of neck of right femur, initial encounter for closed fracture Is this a current diagnosis for this admission?: YesPlan: Dr. Brock consulted, anticipate surgical repair on Thursday. (2) Elevated LFTs Is this a current diagnosis for this admission?: Yes (3) Hypomagnesemia Is this a current diagnosis for this admission?: YesPlan: Replace and monitor (4) Thrombocytopenia Is this a current diagnosis for this admission?: YesPlan: Hematology consulted. Apparently a chronic problem for him. Etiology unclear but may need transfusion prior to surgery if the level remains below 75,000. We 'll type and screen in preparation for same. 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 At baseline. (6) Brown-Sequard syndrome Is this a current diagnosis for this admission?: NoPlan: Ruled out. Neurology consult and does not feel his clinical condition fits with this syndrome. Okay to remove soft collar and DC spine precautions. (7) Right fibular fracture Qualifiers: Encounter type: initial encounter Fracture type: closed Fracture morphology: unspecified fracture morphology Is this a current diagnosis for this admission?: NoPlan: Ruled out as radiographic artifact. - Time Time Spent with patient: 35 or more minutes Anticipated discharge: Acute Rehab - Will need placement for hip fracture rehabilitation Within: within 72 hours
[2016-10-09] MEDS: ATORVASTATIN CALCIUM 10 MG TABLET PO SCH (22:25)
[2016-10-09] MEDS: OXYCODONE HCL IR 5 MG TABLET PO PRN (22:26)
[2016-10-09] MEDS: 1/2 NORMAL SALINE 1,000 ML IV PRN (22:29)
[2016-10-10] MEDS: MORPHINE SULFATE 10 MG/ML INJ IV PRN (00:42)
[2016-10-10 07:10] LABS: HEMATOCRIT 42.1 % (37.9-51.0); HEMOGLOBIN 14.4 g/dL (13.5-17.0); HGB HCT DIFFERENCE 1.1; MEAN CORPUSCULAR HGB CONC 34.2 g/dL (32.0-36.0); MEAN CORPUSCULAR VOLUME 88 fl (80-97); RED CELL DISTRIBUTION WIDTH 14.4 % (11.5-14.0); WHITE BLOOD COUNT 8.7 10^3/uL (4.0-10.5)
--- NOTE | 2016-10-10 07:13 | PDOC PROGRESS REPORT ---
Subjective Progress Note for:: 10/10/16 Subjective:: Patient seen and evaluated this morning. Continues to have pain in his right hip. No issues overnight. Denies chest pain or shortness of breath. Physical Exam Vital Signs: Temp Pulse Resp BP Pulse Ox 98.2 F 67 17 133/60 H 95 10/10/16 03:41 10/10/16 03:41 10/10/16 03:41 10/10/16 03:41 10/10/16 03:41 Intake & Output 10/09/16 10/10/16 10/11/16 06:59 06:59 06:59 Intake Total 1684 1852 Output Total 1100 1000 Balance 584 852 Musculoskeletal exam: PRESENT: other - Right lower extremity: Short, externally rotated. Positive log roll. Mild tenderness along the lateral aspect of the ankle. Intact plantar flexion/dorsiflexion. Cap refill less than 2 seconds. Results Laboratory Results: 10/09/16 06:01 10/09/16 10/09/16 10/09/16 06:01 06:01 13:35 WBC 7.9 RBC 4.45 Hgb 13.4 L Hct 39.3 MCV 88 MCH 30.1 MCHC 34.2 RDW 14.5 H Plt Count 65 L Sodium 142.3 Potassium 4.3 Chloride 102 Carbon Dioxide 30 Anion Gap 10 BUN 12 Creatinine 0.74 Est GFR ( Amer) > 60 Est GFR (Non-Af Amer) > 60 Glucose 126 H Calcium 9.7 Magnesium 1.6 Total Bilirubin 0.7 AST 72 H ALT 57 Alkaline Phosphatase 93 Total Protein 6.6 Albumin 3.6 Blood Type O NEGATIVE Antibody Screen NEGATIVE Impressions: Ankle X-Ray 10/08/16 00:00 IMPRESSION: No acute fracture. Suspected fracture from the previous day related to artifact. Hip/Pelvis X-Ray 10/08/16 00:33 IMPRESSION: Subcapital fracture of the right femoral neck. Femur X-Ray 10/08/16 00:39 IMPRESSION: The femoral shaft is intact. Tibia/Fibula X-Ray 10/08/16 00:39 IMPRESSION: Linear lucency along the distal fibular incompletely imaged. Assessment & Plan - Diagnosis (1) Fracture of femoral neck, right Qualifiers: Encounter type: initial encounter Fracture type: closed Qualified Code(s): S72.001A - Fracture of unspecified part of neck of right femur, initial encounter for closed fracture Is this a current diagnosis for this admission?: YesPlan: At this point we are awaiting anesthesia clearance I have discussed the case with Dr. Wing the hospitalist who feels patient's is medically optimized for operative intervention. I have also discussed the case with the family noting surgery will be 10/10/2016 pending anesthesia decision. Risks and benefits of the operative procedure have been explained to the family they have verbalized understanding and consented for the procedure. Risks include anesthetic complications, excessive bleeding, infection, injury to surrounding nerves, vessels and tendons, bruising, healing difficulties, scar formation, posttraumatic arthritis and any unforseen complication. Currently today's platelet count is pending if it remains below 75,000 patient will be transfused platelets preoperatively.
[2016-10-10] MEDS ORDERED: NORMAL SALINE 250 ML IV PRN ×2 (07:30)
[2016-10-10] MEDS: LOSARTAN POTASSIUM 50 MG TABLET PO SCH (10:05)
[2016-10-10] MEDS: BACLOFEN 10 MG TABLET PO SCH ×2 (10:05→18:54)
[2016-10-10] MEDS: FINASTERIDE 5 MG TABLET PO SCH (10:06)
[2016-10-10] MEDS: ASPIRIN 81 MG TABLET, CHEWABLE PO SCH (10:06)
[2016-10-10] MEDS: METOPROLOL TARTRATE 25 MG TABLET PO SCH ×2 (10:06→23:22)
[2016-10-10] MEDS: OXYCODONE HCL IR 5 MG TABLET PO PRN (10:06)
[2016-10-10] MEDS: SERTRALINE HCL 50 MG TABLET PO SCH (10:06)
[2016-10-10] MEDS: MULTIVITAMIN TABLET PO SCH (10:08)
[2016-10-10] MEDS: GLIMEPIRIDE 1 MG TABLET PO SCH ×2 (10:08→18:54)
--- NOTE | 2016-10-10 10:13 | XCELERA REPORT ---
[address] [address] Transthoracic Echocardiogram Report Name: TRACI FLORES Age: 76 yrs Gender: Male : 1940 Patient Status: Inpatient Patient Location: [id number]\S\434\S\A Study Date: 10/09/2016 07:56 PM Height: 71 in Weight: 219 lb BSA: 2.2 m2 Procedure: A complete two-dimensional transthoracic echocardiogram was performed (2D, M-mode, spectral and color flow Doppler). The study was technically difficult with many images being suboptimal in quality. Reason For Study: preop Ordering Physician: SHELTON FRANCOIS Performed By: Leti Mcghee Interpretation Summary LV EF is approx 40%% The study was technically difficult with many images being suboptimal in quality. Left ventricular systolic function is mild to moderately reduced. Doppler measurements suggest pseudonormalized left ventricular relaxation, which is associated with grade II/IV or mild to moderate diastolic dysfunction There is mild concentric left ventricular hypertrophy. The left ventricle is grossly normal size. Regional wall motion abnormalities cannot be excluded due to limited visualization. Not all wall segments were well visualized. The right ventricle is not well visualized secondary to technical limitations The left atrium is mildly dilated. The right atrium is borderline dilated. There is a trace amount of mitral regurgitation There is no mitral valve stenosis. There is no aortic valve stenosis No aortic regurgitation is present. There is a trace or physiologic amount of tricuspid regurgitation Tricuspid regurgitation jet envelope not well defined to measure RV systolic pressure accurately. The aortic root is not well visualized. The inferior vena cava was not well visualized There is no pericardial effusion. MMode/2D Measurements \T\ Calculations IVSd: 0.97 cm LVIDd: 5.6 cm FS: 19.0 % Ao root diam: 3.6 cm LVIDs: 4.5 cm EDV(Teich): 152.2 ml LVPWd: 0.90 cm ESV(Teich): 93.2 ml Ao root area: 10.0 cm2 EF(Teich): 38.8 % LA dimension: 4.5 cm LVOT diam: 2.1 cm LVOT area: 3.4 cm2 Doppler Measurements \T\ Calculations MV E max nilay: MV P1/2t max nilay: Ao V2 max: LV V1 max P.9 cm/sec 81.9 cm/sec 174.5 cm/sec 5.3 mmHg MV A max nilay: MV P1/2t: 67.2 msec Ao max PG: LV V1 max: 96.3 cm/sec MVA(P1/2t): 3.3 cm2 12.3 mmHg 115.5 cm/sec MV E/A: 0.84 MV dec slope: TAE(V,D): 2.3 cm2 357.0 cm/sec2 MV dec time: 0.21 sec PA V2 max: TR max nilay: 88.4 cm/sec 149.3 cm/sec PA max PG: TR max P.9 mmHg 3.1 mmHg Left Ventricle The left ventricle is grossly normal size. There is mild concentric left ventricular hypertrophy. Left ventricular systolic function is mild to moderately reduced. LV EF is approx 40%%. Doppler measurements suggest pseudonormalized left ventricular relaxation, which is associated with grade II/IV or mild to moderate diastolic dysfunction. Not all wall segments were well visualized. Regional wall motion abnormalities cannot be excluded due to limited visualization. Right Ventricle The right ventricle is not well visualized secondary to technical limitations. Right ventricular function cannot be assessed due to poor image quality. Atria The right atrium is borderline dilated. The left atrium is mildly dilated. Interarterial septum not well visualized and not well dopplered. Cannot comment on ASD/PFO presence. Mitral Valve The mitral valve leaflets are sclerotic, but show no functional abnormalities. There is no mitral valve stenosis. There is a trace amount of mitral regurgitation. Aortic Valve The aortic valve is not well visualized secondary to technical limitations. There is no aortic valve stenosis. No aortic regurgitation is present. Tricuspid Valve The tricuspid valve is not well visualized secondary to technical limitations. There is no tricuspid stenosis. There is a trace or physiologic amount of tricuspid regurgitation. Tricuspid regurgitation jet envelope not well defined to measure RV systolic pressure accurately. Pulmonic Valve The pulmonic valve is not well visualized. Great Vessels The aortic root is not well visualized. The inferior vena cava was not well visualized. Effusions There is no pericardial effusion. : SHELTON FRANCOIS > Kellen Walter
[2016-10-10] MEDS ORDERED: BUPIVACAINE INJ/PF LIPOSOME/PF 266 MG/20 ML SDV ONE ×2 (10:15→13:44)
[2016-10-10] MEDS ORDERED: BACITRACIN INJ 50,000 UNIT VIAL ONE (10:16)
[2016-10-10] MEDS ORDERED: THROMBIN (BOVINE) 5000 UNIT EPITAXIS KIT ONE (10:16)
[2016-10-10 11:41] LABS: HLA CLASS 1 ANTIBODY Negative (Negative); IIB/IIIA ANTIBODY Negative (Negative)
[2016-10-10 12:11] LABS: ABSOLUTE EOSINOPHILS # (AUTO) 0.3 10^3/uL (0.0-0.6); ABSOLUTE LYMPHOCYTES (AUTO) 1.2 10^3/uL (0.5-4.7); ABSOLUTE MONOCYTES (AUTO) 1.3 10^3/uL (0.1-1.4); ABSOLUTE NEUT (AUTO) 8.1 10^3/uL (1.7-8.2); BASOPHILS % (AUTO) 0.5 % (0-2); HEMATOCRIT 41.5 % (37.9-51.0); HEMOGLOBIN 14.3 g/dL (13.5-17.0); LYMPHOCYTES % (AUTO) 11.4 % (13-45); MEAN CORPUSCULAR HEMOGLOBIN 30.1 pg (27.0-33.4); MEAN CORPUSCULAR HGB CONC 34.4 g/dL (32.0-36.0); MEAN CORPUSCULAR VOLUME 88 fl (80-97); MONOCYTES % (AUTO) 11.7 % (3-13); RED BLOOD COUNT 4.74 10^6/uL (4.35-5.55); RED CELL DISTRIBUTION WIDTH 14.2 % (11.5-14.0); SEGMENTED NEUTROPHILS % (AUTO) 73.4 % (42-78)
[2016-10-10 12:35] LABS: HGB HCT DIFFERENCE 1.4
[2016-10-10 14:37] LABS: IA/IIA ANTIBODY Positive (Negative)
[2016-10-10] MEDS: 1/2 NORMAL SALINE 1,000 ML IV PRN (16:52)
--- NOTE | 2016-10-10 18:27 | PDOC PROGRESS REPORT ---
Subjective Progress Note for:: 10/10/16 Subjective:: History of Present Illness: TRACI FLORES is a 76 year old male sent to the emergency room by his primary care provider for concern of a possible spinal cord injury/lesion causing the above complaints. Patient was presented as a basic fall with hip fracture. At no point during this discussion was there any mention made of concern for possible problem with patient's spinal cord. This information was noted upon review of his paper chart after the patient had been admitted to the hospitalist service and was on the floor. Prior to my being called, nurse practitioner had discussed the patient with on-call orthopedist, who has agreed to manage the patient's orthopedic injuries. According to emergency room notes, patient has a history of a subdural hematoma in 2003, with resulting right-sided weakness, normally able to ambulate with a walker. Patient suffered a fall September 25 and has had progressive pain involving his right hip and leg, now to the point where he simply is not able to ambulate at all. 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 Daughter goes on to report the discoloration fits pattern of the patient's shorts he wheres to his Grandson's every outdoor sporting activity and is unchanged from this past Summer. He's been evaluated by orthopedic surgery and anticipates surgical correction of his fracture on Thursday. He's been evaluated by hematology recommending transfusion as needed perioperatively to keep his platelets greater than 75, 000. He's been evaluated by anesthesiology and is recommending echocardiogram preop which was performed and shows a technically difficult study, LVEF approximately 40% with grade 2 / 4 mild to moderate diastolic dysfunction, mild concentric left ventricular hypertrophy, not all wall segments were well visualized making it difficult to evaluate for regional wall motion abnormalities, left atrium mildly dilated, right atrium borderline dilated. 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 Case was discussed with Dr. smith, orthopedic surgeon who discussed case at length with our anesthesiologist and a consensus reached to that he needs transfer to a tertiary care center for treatment not readily available at this facility, in particular the lack of blood bank and ready access to platelets in the event of postoperative bleeding as well as staff not well versed in the administration of IVIG. I have spoken with Dr. Rodriguez, hospitalist at [facility], who has accepted the patient in transfer to Dr. Ramesh MARIN as attending physician. Unfortunately they do not have beds available and do not anticipate a bed for more than 24 hours. I have also spoken with [facility] in [place], Dr. SLAUGHTER accepting physician pending telephone consultation with their ruby engineer. They do not have a bed available at this time either Of note, Overall his condition is stabilized his pain is well controlled and he is hemodynamically stable, showing no signs of cardiac arrhythmia on telemetry monitoring. His mental state appears to be at baseline according to the family report to the nurse. Physical Exam Vital Signs: Temp Pulse Resp BP Pulse Ox 97.4 F 69 18 149/78 H 97 10/10/16 16:00 10/10/16 16:00 10/10/16 16:00 10/10/16 16:00 10/10/16 16:00 Intake & Output 10/09/16 10/10/16 10/11/16 06:59 06:59 06:59 Intake Total 1684 1852 196 Output Total 1100 1000 500 Balance 584 852 -304 Results Laboratory Results: 10/10/16 11:53 10/09/16 06:01 10/09/16 10/10/16 10/10/16 13:35 06:31 06:31 WBC 8.7 RBC 4.80 Hgb 14.4 Hct 42.1 MCV 88 MCH 30.0 MCHC 34.2 RDW 14.4 H Plt Count 62 L Seg Neutrophils % Lymphocytes % Monocytes % Eosinophils % Basophils % Absolute Neutrophils Absolute Lymphocytes Absolute Monocytes Absolute Eosinophils Absolute Basophils Magnesium 1.6 Blood Type O NEGATIVE Antibody Screen NEGATIVE 10/10/16 11:53 WBC 11.0 H RBC 4.74 Hgb 14.3 Hct 41.5 MCV 88 MCH 30.1 MCHC 34.4 RDW 14.2 H Plt Count 73 L Seg Neutrophils % 73.4 Lymphocytes % 11.4 L Monocytes % 11.7 Eosinophils % 3.0 Basophils % 0.5 Absolute Neutrophils 8.1 Absolute Lymphocytes 1.2 Absolute Monocytes 1.3 Absolute Eosinophils 0.3 Absolute Basophils 0.0 Magnesium Blood Type Antibody Screen Impressions: Ankle X-Ray 10/08/16 00:00 IMPRESSION: No acute fracture. Suspected fracture from the previous day related to artifact. Hip/Pelvis X-Ray 10/08/16 00:33 IMPRESSION: Subcapital fracture of the right femoral neck. Femur X-Ray 10/08/16 00:39 IMPRESSION: The femoral shaft is intact. Tibia/Fibula X-Ray 10/08/16 00:39 IMPRESSION: Linear lucency along the distal fibular incompletely imaged. Assessment & Plan - Diagnosis (1) Fracture of femoral neck, right Qualifiers: Encounter type: initial encounter Fracture type: closed Qualified Code(s): S72.001A - Fracture of unspecified part of neck of right femur, initial encounter for closed fracture Is this a current diagnosis for this admission?: YesPlan: Patient's underlying medical problems preclude orthopedic repair at this facility. Transfer arrangements are underway to either [place] or [place]. Family informed and is agreeable to transfer. Orthopedic surgeon informed. 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 Transfer arrangements underway. 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 All questions asked and answered to their satisfaction. They are understanding of the situation, the fact that that may not be readily available and are accepting of circumstances. I assured them of the nonurgent nature of his condition and that we will continue to provide supportive care. They seem satisfied with the treatment plan and are in agreement.
[2016-10-10 22:14] LABS: HIV (1 AND 2) ANTIBODY NEGATIVE (NEGATIVE)
[2016-10-10] MEDS: ATORVASTATIN CALCIUM 10 MG TABLET PO SCH (23:21)
[2016-10-11 06:13] LABS: LDH 516 U/L (313-618)
[2016-10-11 07:24] LABS: FOLATE > 20.00 ng/mL (>2.76)
[2016-10-11] MEDS: METOPROLOL TARTRATE 25 MG TABLET PO SCH (09:31)
[2016-10-11] MEDS: BACLOFEN 10 MG TABLET PO SCH ×2 (09:31→17:21)
[2016-10-11] MEDS: LOSARTAN POTASSIUM 50 MG TABLET PO SCH (09:31)
[2016-10-11] MEDS: MULTIVITAMIN TABLET PO SCH (09:32)
[2016-10-11] MEDS: SERTRALINE HCL 50 MG TABLET PO SCH (09:32)
[2016-10-11] MEDS: FINASTERIDE 5 MG TABLET PO SCH (09:32)
[2016-10-11] MEDS: ASPIRIN 81 MG TABLET, CHEWABLE PO SCH (09:32)
[2016-10-11] MEDS: GLIMEPIRIDE 1 MG TABLET PO SCH ×2 (09:32→17:21)
[2016-10-11] MEDS: 1/2 NORMAL SALINE 1,000 ML IV PRN (12:12)
--- NOTE | 2016-10-11 13:00 | PDOC PROGRESS REPORT ---
Subjective Progress Note for:: 10/11/16 Subjective:: History of Present Illness: TRACI FLORES is a 76 year old male sent to the emergency room by his primary care provider for concern of a possible spinal cord injury/lesion causing the above complaints. Patient was presented as a basic fall with hip fracture. At no point during this discussion was there any mention made of concern for possible problem with patient's spinal cord. This information was noted upon review of his paper chart after the patient had been admitted to the hospitalist service and was on the floor. Prior to my being called, nurse practitioner had discussed the patient with on-call orthopedist, who has agreed to manage the patient's orthopedic injuries. According to emergency room notes, patient has a history of a subdural hematoma in 2003, with resulting right-sided weakness, normally able to ambulate with a walker. Patient suffered a fall September 25 and has had progressive pain involving his right hip and leg, now to the point where he simply is not able to ambulate at all. 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 Daughter goes on to report the discoloration fits pattern of the patient's shorts he wheres to his Grandson's every outdoor sporting activity and is unchanged from this past Summer. He's been evaluated by orthopedic surgery and anticipates surgical correction of his fracture on Thursday. He's been evaluated by hematology recommending transfusion as needed perioperatively to keep his platelets greater than 75, 000. He's been evaluated by anesthesiology and is recommending echocardiogram preop which was performed and shows a technically difficult study, LVEF approximately 40% with grade 2 / 4 mild to moderate diastolic dysfunction, mild concentric left ventricular hypertrophy, not all wall segments were well visualized making it difficult to evaluate for regional wall motion abnormalities, left atrium mildly dilated, right atrium borderline dilated. 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 Case was discussed with Dr. smith, orthopedic surgeon who discussed case at length with our anesthesiologist and a consensus reached to that he needs transfer to a tertiary care center for treatment not readily available at this facility, in particular the lack of blood bank and ready access to platelets in the event of postoperative bleeding as well as staff not well versed in the administration of IVIG. I have spoken with Dr. Rodriguez, hospitalist at [facility], who has accepted the patient in transfer to Dr. Ramesh MARIN as attending physician. Unfortunately they do not have beds available and do not anticipate a bed for more than 24 hours. I have also spoken with [facility] in [place], Dr. SLAUGHTER accepting physician pending telephone consultation with their customer care assistant. They do not have a bed available at this time either Of note, Overall his condition is stabilized his pain is well controlled and he is hemodynamically stable, showing no signs of cardiac arrhythmia on telemetry monitoring. His mental state appears to be at baseline according to the family report to the nurse. Physical Exam Vital Signs: Temp Pulse Resp BP Pulse Ox 98.0 F 76 18 149/72 H 93 10/11/16 07:27 10/11/16 07:27 10/11/16 07:27 10/11/16 07:27 10/11/16 07:27 Intake & Output 10/10/16 10/11/16 10/12/16 06:59 06:59 06:59 Intake Total 1852 1936 Output Total 1000 1300 Balance 852 636 General appearance: PRESENT: no acute distress, cooperative, hard of hearing Head exam: PRESENT: atraumatic, normocephalic Eye exam: PRESENT: PERRLA. ABSENT: conjunctival injection Mouth exam: PRESENT: moist, neck supple Neck exam: ABSENT: carotid bruit, JVD, tracheal deviation Respiratory exam: PRESENT: clear to auscultation pam, unlabored. ABSENT: accessory muscle use Cardiovascular exam: PRESENT: RRR. ABSENT: systolic murmur Pulses: PRESENT: normal carotid pulses, normal radial pulses Vascular exam: PRESENT: normal capillary refill GI/Abdominal exam: PRESENT: normal bowel sounds, soft. ABSENT: distended, guarding, mass, organolmegaly, rebound, tenderness Rectal exam: PRESENT: deferred Extremities exam: PRESENT: calf tenderness - Entire right leg is automatic embroidery machine tender to palpation. ABSENT: full ROM - Limited range of motion due to pain Neurological exam: PRESENT: alert, awake, oriented to person, oriented to place Psychiatric exam: PRESENT: appropriate affect, normal mood Skin exam: PRESENT: dry, intact, warm. ABSENT: cyanosis, rash Results Laboratory Results: 10/10/16 11:53 10/09/16 06:01 10/10/16 10/11/16 20:48 05:32 Iron 45 L TIBC 352 % Saturation 13 Ferritin 79.10 Vitamin B12 676.0 Folate > 20.00 Impressions: Ankle X-Ray 10/08/16 00:00 IMPRESSION: No acute fracture. Suspected fracture from the previous day related to artifact. Hip/Pelvis X-Ray 10/08/16 00:33 IMPRESSION: Subcapital fracture of the right femoral neck. Femur X-Ray 10/08/16 00:39 IMPRESSION: The femoral shaft is intact. Tibia/Fibula X-Ray 10/08/16 00:39 IMPRESSION: Linear lucency along the distal fibular incompletely imaged. Abdomen Ultrasound 10/11/16 00:00 IMPRESSION: No ascites Stable splenomegaly Antegrade portal venous flow Assessment & Plan - Diagnosis (1) Fracture of femoral neck, right Qualifiers: Encounter type: initial encounter Fracture type: closed Qualified Code(s): S72.001A - Fracture of unspecified part of neck of right femur, initial encounter for closed fracture Is this a current diagnosis for this admission?: YesPlan: Patient's underlying medical problems preclude orthopedic repair at this facility. Transfer arrangements are underway to either [place] or [place]. Family informed and is agreeable to transfer. Orthopedic surgeon informed. (2) Elevated LFTs Is this a current diagnosis for this admission?: YesPlan: Mild and of unclear significance. Trend. 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 Transfer arrangements underway. 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 At baseline. (6) Brown-Sequard syndrome Is this a current diagnosis for this admission?: No - Time Time Spent with patient: 25-34 minutes
--- NOTE | 2016-10-11 14:08 | PDOC PROGRESS REPORT ---
Subjective Progress Note for:: 10/11/16 Subjective:: Patient seen and evaluated. Lying in bed comfortably. No change according to the family. Physical Exam Vital Signs: Temp Pulse Resp BP Pulse Ox 98.0 F 76 18 149/72 H 93 10/11/16 07:27 10/11/16 07:27 10/11/16 07:27 10/11/16 07:27 10/11/16 07:27 Intake & Output 10/10/16 10/11/16 10/12/16 06:59 06:59 06:59 Intake Total 1852 1936 Output Total 1000 1300 Balance 852 636 Musculoskeletal exam: PRESENT: other - Right lower extremity: Shortened externally rotated. Positive log roll. Pain with attempted range of motion. Limited ankle motion. Mild tenderness laterally. Results Laboratory Results: 10/10/16 11:53 10/09/16 06:01 10/10/16 10/11/16 20:48 05:32 Iron 45 L TIBC 352 % Saturation 13 Ferritin 79.10 Vitamin B12 676.0 Folate > 20.00 Impressions: Ankle X-Ray 10/08/16 00:00 IMPRESSION: No acute fracture. Suspected fracture from the previous day related to artifact. Hip/Pelvis X-Ray 10/08/16 00:33 IMPRESSION: Subcapital fracture of the right femoral neck. Femur X-Ray 10/08/16 00:39 IMPRESSION: The femoral shaft is intact. Tibia/Fibula X-Ray 10/08/16 00:39 IMPRESSION: Linear lucency along the distal fibular incompletely imaged. Abdomen Ultrasound 10/11/16 00:00 IMPRESSION: No ascites Stable splenomegaly Antegrade portal venous flow Assessment & Plan - Diagnosis (1) Fracture of femoral neck, right Qualifiers: Encounter type: initial encounter Fracture type: closed Qualified Code(s): S72.001A - Fracture of unspecified part of neck of right femur, initial encounter for closed fracture Is this a current diagnosis for this admission?: YesPlan: At this point patient has been seen and evaluated by hematology and given his ITP have recommended transfer to tertiary care facility where emergent treatment including transfusion of platelets can be done. As for the patient's ankle is radiographs demonstrate no evidence of acute abnormality and the majority of his ankle pain may be secondary to his guarding against motion of the right lower extremity. Awaiting transfer to tertiary care facility.
[2016-10-11 16:24] VITALS: BP 149/59
--- NOTE | 2016-10-11 17:12 | PDOC TRANSFER SUMMARY ---
General Admission Date/PCP: 10/08/16 08:42 KAVON PULLIAM MD Transfer Date: 10/11/16 Accepting Facility: [facility] Accepting Physician: dr mookie barnes Resuscitation Status: Full Code - Transfer Diagnosis (1) Fracture of femoral neck, right Current Visit: Yes Diagnosis Summary: Patient's underlying medical problems preclude orthopedic repair at this facility. Transfer arrangements are underway to either [place] or [place]. Family informed and is agreeable to transfer. Orthopedic surgeon in agreement. 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 Transfer arrangements complete. (3) Hypomagnesemia Current Visit: Yes Diagnosis Summary: Currently 1.6 after replacement. (4) Elevated LFTs Current Visit: Yes Diagnosis Summary: Only AST is mildly elevated at 72. 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 At baseline. - Transfer Medications Home Medications: Aspirin [Aspirin 81 mg Chewable Tablet] 81 mg PO DAILY 10/08/16 Atorvastatin Calcium [Lipitor 10 mg Tablet] 10 mg PO QHS 10/08/16 Baclofen [Baclofen 10 mg Tablet] 10 mg PO TID 10/08/16 Finasteride [Proscar 5 mg Tablet] 5 mg PO DAILY 10/08/16 Glimepiride [Amaryl 1 mg Tablet] 1 mg PO BID 10/08/16 Hydrocodone/Acetaminophen [Brownell 5-325 mg Tablet] 1 tab PO Q6 10/08/16 Losartan Potassium [Cozaar 50 mg Tablet] 50 mg PO DAILY 10/08/16 Metformin HCl [Metformin HCl ER] 500 mg PO TID 10/08/16 Metoprolol Tartrate [Lopressor 25 mg Tablet] 25 mg PO Q12 10/08/16 Multivitamin [Daily Multiple Vitamin] 1 tab PO DAILY 10/08/16 Niacin (Inositol Niacinate) [Niacin 500 mg Capsule] 1,000 mg PO QHS 10/08/16 Herminie-3 Fatty Acids/Fish Oil [[place]inie-3 1,000 Mg Softgel] 1,000 cap PO DAILY 10/08 Sertraline HCl [Zoloft 50 mg Tablet] 50 mg PO DAILY 10/08/16 Transfer Medications: Current Medications Acetaminophen (Tylenol 650 Mg Supp) 650 mg [place] Q8HP PRN PRN Reason: FOR PAIN OR TEMP Stop: 11/07/16 08:54 Aspirin (Aspirin 81 Mg Chewable Tablet) 81 mg PO DAILY [facility] Stop: 11/08/16 09:59 Last Admin: 10/11/16 09:32 Dose: 81 mg Atorvastatin Calcium (Lipitor 10 Mg Tablet) 10 mg PO QHS GABY Stop: 11/07/16 21:59 Last Admin: 10/10/16 23:21 Dose: 10 mg Baclofen (Baclofen 10 Mg Tablet) 10 mg PO BID [facility] Stop: 11/08/16 09:59 Last Admin: 10/11/16 09:31 Dose: 10 mg Dextrose (Dextrose Inj 50% Syringe (25 Gm/50 Ml)) 12.5 gm IV PRN PRN; Protocol PRN Reason: FOR BG 50-69 IN ALERT PATIENT Stop: 11/07/16 08:42 Dextrose (Dextrose Inj 50% Syringe (25 Gm/50 Ml)) 25 gm IV PRN PRN PRN Reason: Protocol Stop: 11/07/16 08:42 Finasteride (Proscar 5 Mg Tablet) 5 mg PO DAILY [facility] Stop: 11/08/16 09:59 Last Admin: 10/11/16 09:32 Dose: 5 mg Glimepiride (Amaryl 1 Mg Tablet) 1 mg PO BID [facility] Stop: 11/08/16 09:59 Last Admin: 10/11/16 09:32 Dose: 1 mg Glucagon (Glucagen Inj 1 Mg Vial) 1 mg IM PRN PRN; Protocol PRN Reason: Evaluate for BG < 70 Stop: 11/07/16 08:42 Glucose (Glutose 40% Gel 15 Gm Tube) 15 gm PO PRN PRN; Protocol PRN Reason: FOR BG 50-69 IN ALERT PATIENT Stop: 11/07/16 08:42 Glucose (Glutose 40% Gel 15 Gm Tube) 30 gm PO PRN PRN; Protocol PRN Reason: FOR BG < 50 IN ALERT PATIENT Stop: 11/07/16 08:42 Sodium Chloride (Nacl 0.45% 1000 Ml Iv Soln) 1,000 mls @ 75 mls/hr IV CONTINUOUS PRN PRN Reason: THIS MED IS NOT "PRN" Stop: 11/07/16 08:47 Last Admin: 10/11/16 12:12 Dose: 1,000 ml Insulin Human Lispro (Humalog Insulin 100 Unit/1 Ml 3 Ml Vial) 0 - 12 unit SUBCUT Q6HP PRN PRN Reason: Protocol Stop: 11/07/16 08:42 Losartan Potassium (Cozaar 50 Mg Tablet) 50 mg PO DAILY [facility]Y Stop: 11/08/16 09:59 Last Admin: 10/11/16 09:31 Dose: 50 mg Metoprolol Tartrate (Lopressor 25 Mg Tablet) 25 mg PO Q12 GABY Stop: 11/07/16 21:59 Last Admin: 10/11/16 09:31 Dose: 25 mg Morphine Sulfate (Morphine 10 Mg/Ml Inj) 2 mg IV Q4HP PRN PRN Reason: FOR SEVERE PAIN Stop: 10/15/16 12:42 Last Admin: 10/10/16 00:42 Dose: 2 mg Multivitamins (Tab-A-Rj (Multiple Vitamin) Tablet) 1 tab PO DAILY GABY Stop: 11/08/16 09:59 Last Admin: 10/11/16 09:32 Dose: 1 tab Oxycodone HCl (Oxy-Ir 5 Mg Tablet) 5 mg PO Q6HP PRN PRN Reason: FOR MODERATE PAIN Stop: 10/15/16 12:42 Last Admin: 10/10/16 10:06 Dose: 5 mg Sertraline HCl (Zoloft 50 Mg Tablet) 50 mg PO DAILY [facility]ABY Stop: 11/08/16 09:59 Last Admin: 10/11/16 09:32 Dose: 50 mg Sodium Chloride (Saline Flush 2.5 Ml Monoject Prefil Syrin) 2.5 ml IV Q8 GABY Stop: 11/07/16 13:59 Last Admin: 10/11/16 06:22 Dose: Not Given - Allergies Allergies/Adverse Reactions: No Known Allergies Allergy (Unverified 03/11/16 09:55) - Diet/Activity Discharge Diet: Diabetic Discharge Activity: Bedrest Hospital Course Hospital Course: sent to the emergency room by his primary care provider for concern of a possible spinal cord injury/lesion causing the above complaints. Patient was presented as a basic fall with hip fracture. At no point during this discussion was there any mention made of concern for possible problem with patient's spinal cord. This information was noted upon review of his paper chart after the patient had been admitted to the hospitalist service and was on the floor. Prior to my being called, nurse practitioner had discussed the patient with on-call orthopedist, who has agreed to manage the patient's orthopedic injuries. According to emergency room notes, patient has a history of a subdural hematoma in 2003, with resulting right-sided weakness, normally able to ambulate with a walker. Patient suffered a fall September 25 and has had progressive pain involving his right hip and leg, now to the point where he simply is not able to ambulate at all. 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 Daughter goes on to report the discoloration fits pattern of the patient's shorts he wheres to his Grandson's every outdoor sporting activity and is unchanged from this past Summer. He's been evaluated by orthopedic surgery and anticipates surgical correction of his fracture on Thursday. He's been evaluated by hematology recommending transfusion as needed perioperatively to keep his platelets greater than 75, 000. He's been evaluated by anesthesiology and is recommending echocardiogram preop which was performed and shows a technically difficult study, LVEF approximately 40% with grade 2 / 4 mild to moderate diastolic dysfunction, mild concentric left ventricular hypertrophy, not all wall segments were well visualized making it difficult to evaluate for regional wall motion abnormalities, left atrium mildly dilated, right atrium borderline dilated. 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 Case was discussed with Dr. smith, orthopedic surgeon who discussed case at length with our anesthesiologist and a consensus reached to that he needs transfer to a tertiary care center for treatment not readily available at this facility, in particular the lack of blood bank and ready access to platelets in the event of postoperative bleeding as well as staff not well versed in the administration of IVIG. I have spoken with Dr. Rodriguez, hospitalist at [facility], who has accepted the patient in transfer to Dr. Mookie BARNES as attending physician. Unfortunately they do not have beds available and do not anticipate a bed for more than 24 hours. Of note, Overall his condition is stabilized his pain is well controlled and he is hemodynamically stable, showing no signs of cardiac arrhythmia on telemetry monitoring. His mental state appears to be at baseline according to the family report to the nurse. Physical Exam Vital Signs: Temp Pulse Resp BP Pulse Ox 97.7 F 70 16 149/59 H 96 10/11/16 15:42 10/11/16 15:42 10/11/16 15:42 10/11/16 15:42 10/11/16 15:42 Intake & Output 10/10/16 10/11/16 10/12/16 06:59 06:59 06:59 Intake Total 1852 1936 Output Total 1000 1300 Balance 852 636 General appearance: PRESENT: no acute distress, obese Eye exam: ABSENT: conjunctival injection Mouth exam: PRESENT: moist Neck exam: ABSENT: carotid bruit, tenderness Respiratory exam: PRESENT: crackles - Crackles at the bases. ABSENT: accessory muscle use Cardiovascular exam: PRESENT: RRR Pulses: PRESENT: normal carotid pulses GI/Abdominal exam: PRESENT: normal bowel sounds, soft. ABSENT: tenderness Extremities exam: PRESENT: tenderness - Tenderness all along the right lower extremity. No step-off deformity.. ABSENT: full ROM - Limited by pain. Neurological exam: PRESENT: alert, awake, oriented to person, oriented to place Psychiatric exam: PRESENT: appropriate affect, normal mood Results Laboratory Results: 10/10/16 11:53 10/09/16 06:01 10/10/16 10/11/16 20:48 05:32 Iron 45 L TIBC 352 % Saturation 13 Ferritin 79.10 Vitamin B12 676.0 Folate > 20.00 Impressions: Ankle X-Ray 10/08/16 00:00 IMPRESSION: No acute fracture. Suspected fracture from the previous day related to artifact. Hip/Pelvis X-Ray 10/08/16 00:33 IMPRESSION: Subcapital fracture of the right femoral neck. Femur X-Ray 10/08/16 00:39 IMPRESSION: The femoral shaft is intact. Tibia/Fibula X-Ray 10/08/16 00:39 IMPRESSION: Linear lucency along the distal fibular incompletely imaged. Abdomen Ultrasound 10/11/16 00:00 IMPRESSION: No ascites Stable splenomegaly Antegrade portal venous flow Plan Discharge Plan: Transfer to [facility] for definitive treatment. Time Spent: Greater than 30 Minutes
[2016-10-11] MEDS: OXYCODONE HCL IR 5 MG TABLET PO PRN (18:54)
== END 2016-10-11 20:15 | disposition short-term general hospital (02) | DRG 536 ==
LOC: ER 18:00 → EH 10-08 02:36 → UNDOADMIN 10-08 02:36 → 4S 10-08 07:39 → EH 10-08 07:39 → 4S 10-08 08:42
PROVIDERS: ADMIT Family Medicine; ATTEND Family Medicine
PROC: 30233R1 Transfusion of Nonautologous Platelets into Peripheral Vein, Percutaneous Approach (ICD-10-PCS; principal; 2016-10-10)
DX: S72.011A Unspecified intracapsular fracture of right femur, initial encounter for closed fracture (principal); D69.3 Immune thrombocytopenic purpura; I69.351 Hemiplegia and hemiparesis following cerebral infarction affecting right dominant side; S82.401A Unspecified fracture of shaft of right fibula, initial encounter for closed fracture; B95.2 Enterococcus as the cause of diseases classified elsewhere; W01.0XXA Fall on same level from slipping, tripping and stumbling without subsequent striking against object, initial encounter; E83.42 Hypomagnesemia; E78.5 Hyperlipidemia, unspecified; E11.9 Type 2 diabetes mellitus without complications; D64.9 Anemia, unspecified; I11.9 Hypertensive heart disease without heart failure; J44.9 Chronic obstructive pulmonary disease, unspecified; E78.00 Pure hypercholesterolemia, unspecified; I25.10 Atherosclerotic heart disease of native coronary artery without angina pectoris; G83.81 Brown-Sequard syndrome; I25.2 Old myocardial infarction; Z79.82 Long term (current) use of aspirin; Z79.899 Other long term (current) drug therapy
CPT/HCPCS: 36415; 36430; 76700; 80053; 80074; 81001; 82607; 82728; 82746; 82962; 83540; 83550; 83605; 83615; 83735; 85025; 85027; 85610; 85730; 86022; 86701; 86850; 86900; 86901; 87040; 87086; 87088; 87186; 93005; 93010; 93306; 96374; 96375; 96376; 99285; C9290; J1170; J2060; J2270; J3010; J3490; L0120; P9035

== ENCOUNTER 2018-06-30 23:45 | Inpatient (IN) | payer MEDICARE, OTHER ==
--- NOTE | 2018-07-01 00:09 | ER Document Report ---
ED General - General Chief Complaint: Fever Stated Complaint: FEVER Time Seen by Provider: 06/30/18 23:56 Notes: Patient is a 78-year-old male with dementia and diabetes mellitus that presents to the emergency department for chief complaint of fever and left flank pain. History mainly provided by the patient's who is at bedside as the patient has dementia, and appears to be acutely altered. She reports that the patient this evening started having shaking and was febrile, and was complained of aching in his left flank, which is not usual for him. He seemed to be more confused than at his baseline. He does have dementia. She reports that he has a history of frequent urinary tract infections as well he does have a history of diabetes. She is not sure if he has been urinating more frequently, or if he has been complaining of any dysuria or hematuria. Past Medical History: Diabetes mellitus, hyperlipidemia, hypertension, depression, dementia, history of frequent urinary tract infections Past Surgical History: Reviewed, and not pertinent to presentation Social History: Lives at home with family, no tobacco or alcohol use Family History: Reviewed and noncontributory for presenting illness Allergies: Reviewed, see documented allergy list. REVIEW OF SYSTEMS: Unless otherwise stated in this report the patient's positive and negative responses for review of systems for constitutional, eyes, ENT, cardiovascular, respiratory, gastrointestinal, neurological, genitourinary, musculoskeletal, and integumentary systems and related systems to the presenting problem are either as stated in the HPI or were not pertinent or were negative for the symptoms and/or complaints related to the presenting medical problem. PHYSICAL EXAMINATION: Vital signs reviewed, nursing noted reviewed. GENERAL: Elderly male, no acute distress, appears confused HEAD: Atraumatic, normocephalic. EYES: Eyes appear normal, extraocular movements intact, sclera anicteric, conjunctiva are normal. ENT: nares patent, oropharynx clear without exudates. Moist mucous membranes. NECK: Normal range of motion, supple without lymphadenopathy LUNGS: Lung sounds diminished at the bases, clear to auscultation in the upper araujo, no wheezing, rhonchi or rales HEART: Heart rate borderline tachycardic, regular rhythm ABDOMEN: Soft, nontender, normoactive bowel sounds. No rebound, guarding, or rigidity. No masses appreciated. EXTREMITIES: Nontender, good range of motion, no pitting or edema. NEUROLOGICAL: Alert and oriented to self only, no focal neurological deficits. Moves all extremities spontaneously Motor and sensory grossly intact on exam. PSYCH: Normal mood, normal affect. SKIN: Warm, Dry, normal turgor, no rashes or lesions noted on exposed skin TRAVEL OUTSIDE OF THE [place] IN LAST 30 DAYS: No - Related Data Allergies/Adverse Reactions: No Known Allergies Allergy (Unverified 03/11/16 09:55) Past Medical History - Social History Smoking Status: Unknown if Ever Smoked Family History: Reviewed & Not Pertinent Patient has suicidal ideation: No Patient has homicidal ideation: No - Past Medical History Cardiac Medical History: Reports: Hx Heart Attack - 1998 , Hx Hypercholesterolemia, Hx Hypertension Denies: Hx Coronary Artery Disease Pulmonary Medical History: Denies: Hx Bronchitis, Hx COPD, Hx Pneumonia Neurological Medical History: Reports: Hx Cerebrovascular Accident - HEMORRHAGIC , RESIDUAL R HEMIPARESIS. Denies: Hx Seizures Endocrine Medical History: Reports: Hx Diabetes Mellitus Type 2 Renal/ Medical History: Denies: Hx Peritoneal Dialysis Musculoskeletal Medical History: Denies Hx Arthritis - Immunizations Hx Diphtheria, Pertussis, Tetanus Vaccination: No Hx Pneumococcal Vaccination: 09/28/10 Physical Exam - Vital signs Vitals: Pulse Ox 92 06/30/18 23:49 Course - Re-evaluation Re-evalutation: Patient seen and examined vital signs reviewed. Laboratory data and imaging were ordered as appropriate for the patient's presenting symptoms and complaint, with consideration of any critical or life threatening conditions that may be associated with their obtained history and exam as noted above. Patient was treated with IV fluid bolusing, and started on IV vancomycin and Rocephin, prior urine cultures were reviewed and the patient has grown enterococcus on 2 different occasions, that was sensitive to vancomycin, avoiding penicillins in this patient given he has thrombocytopenia, that could potentially worsen with penicillins in particular Zosyn. Results were reviewed when available and demonstrated significant lactic acidosis, 4.2, however metabolic acidosis is not present on VBG, urinalysis still pending, suspect urinary tract infection versus pneumonia as source of the patient's sepsis. The patient was re-evaluated and was hemodynamically stable, still confused Evaluation was most consistent with sepsis, secondary to pneumonia and possible UTI as well, discussed the case with the hospitalist, who requested a pro calcitonin, and agreed to add azithromycin to the previously dosed antibiotics as noted above Results were discussed with the patient at this point after careful consideration I feel that that patient should be admitted to the hospital. This was discussed with the patient that it is in the best interest for their care to be admitted for further evaluation and management. Patient agreed with this plan of care. A call was placed to the admitted physician, Dr. Harper who graciously accepted the patient onto their service. *Note is created using voice recognition software and may contain spelling, syntax or grammatical errors. Laboratory 07/01/18 07/01/18 07/01/18 00:20 00:20 00:20 WBC 7.3 RBC 4.43 Hgb 13.6 Hct 39.8 MCV 90 MCH 30.6 MCHC 34.1 RDW 14.7 H Plt Count 39 L Seg Neutrophils % 75.8 Lymphocytes % 10.8 L Monocytes % 11.7 Eosinophils % 1.5 Basophils % 0.2 Absolute Neutrophils 5.5 Absolute Lymphocytes 0.8 Absolute Monocytes 0.9 Absolute Eosinophils 0.1 Absolute Basophils 0.0 PT 14.9 INR 1.11 VBG pH VBG pCO2 VBG HCO3 VBG Base Excess Sodium 140.3 Potassium 4.4 Chloride 102 Carbon Dioxide 24 Anion Gap 14 BUN 9 Creatinine 0.80 Est GFR ( Amer) > 60 Est GFR (Non-Af Amer) > 60 Glucose 242 H POC Glucose Lactic Acid Calcium 10.4 H Total Bilirubin 1.6 H Direct Bilirubin 0.7 H Neonat Total Bilirubin Not Reportable Neonat Direct Bilirubin Not Reportable Neonat Indirect Bili Not Reportable AST 66 H ALT 58 Alkaline Phosphatase 74 Troponin I Total Protein 7.2 Albumin 4.2 Urine Color Urine Appearance Urine pH Ur Specific [place] Urine Protein Urine Glucose (UA) Urine Ketones Urine Blood Urine Nitrite Urine Bilirubin Urine Urobilinogen Ur Leukocyte Esterase Urine WBC (Auto) Urine RBC (Auto) Urine Bacteria (Auto) Squamous Epi Cells Auto Urine Mucus (Auto) Urine Ascorbic Acid 07/01/18 07/01/18 07/01/18 00:20 00:20 00:20 WBC RBC Hgb Hct MCV MCH MCHC RDW Plt Count Seg Neutrophils % Lymphocytes % Monocytes % Eosinophils % Basophils % Absolute Neutrophils Absolute Lymphocytes Absolute Monocytes Absolute Eosinophils Absolute Basophils PT INR VBG pH 7.42 VBG pCO2 38.8 VBG HCO3 24.7 VBG Base Excess 0.4 Sodium Potassium Chloride Carbon Dioxide Anion Gap BUN Creatinine Est GFR ( Amer) Est GFR (Non-Af Amer) Glucose POC Glucose Lactic Acid 4.2 H Calcium Total Bilirubin Direct Bilirubin Neonat Total Bilirubin Neonat Direct Bilirubin Neonat Indirect Bili AST ALT Alkaline Phosphatase Troponin I 0.021 Total Protein Albumin Urine Color Urine Appearance Urine pH Ur Specific [place] Urine Protein Urine Glucose (UA) Urine Ketones Urine Blood Urine Nitrite Urine Bilirubin Urine Urobilinogen Ur Leukocyte Esterase Urine WBC (Auto) Urine RBC (Auto) Urine Bacteria (Auto) Squamous Epi Cells Auto Urine Mucus (Auto) Urine Ascorbic Acid 07/01/18 07/01/18 00:39 01:45 WBC RBC Hgb Hct MCV MCH MCHC RDW Plt Count Seg Neutrophils % Lymphocytes % Monocytes % Eosinophils % Basophils % Absolute Neutrophils Absolute Lymphocytes Absolute Monocytes Absolute Eosinophils Absolute Basophils PT INR VBG pH VBG pCO2 VBG HCO3 VBG Base Excess Sodium Potassium Chloride Carbon Dioxide Anion Gap BUN Creatinine Est GFR ( Amer) Est GFR (Non-Af Amer) Glucose POC Glucose 239 H Lactic Acid Calcium Total Bilirubin Direct Bilirubin Neonat Total Bilirubin Neonat Direct Bilirubin Neonat Indirect Bili AST ALT Alkaline Phosphatase Troponin I Total Protein Albumin Urine Color DARK YELLOW Urine Appearance SLIGHTLY-CLOUDY Urine pH 5.0 Ur Specific [place] 1.031 Urine Protein 30 H Urine Glucose (UA) 150 H Urine Ketones TRACE H Urine Blood SMALL H Urine Nitrite NEGATIVE Urine Bilirubin SMALL H Urine Urobilinogen 4.0 H Ur Leukocyte Esterase TRACE H Urine WBC (Auto) 21 Urine RBC (Auto) 13 Urine Bacteria (Auto) TRACE Squamous Epi Cells Auto <1 Urine Mucus (Auto) MANY Urine Ascorbic Acid 40 H Chest X-Ray 07/01/18 00:06 IMPRESSION: There is no acute pleural-parenchymal process seen in the imaged lung araujo. Mild to moderate cardiomegaly - Vital Signs Vital signs: Temp Pulse Resp BP Pulse Ox 97.6 F 20 135/79 H 91 L 06/30/18 23:51 06/30/18 23:51 06/30/18 23:51 06/30/18 23:51 - Laboratory Result Diagrams: 07/01/18 00:20 07/01/18 00:20 Laboratory results interpreted by me: 07/01/18 07/01/18 07/01/18 00:20 00:20 00:20 RDW 14.7 H Plt Count 39 L Lymphocytes % 10.8 L Glucose 242 H POC Glucose Lactic Acid 4.2 H Calcium 10.4 H Total Bilirubin 1.6 H Direct Bilirubin 0.7 H AST 66 H Urine Protein Urine Glucose (UA) Urine Ketones Urine Blood Urine Bilirubin Urine Urobilinogen Ur Leukocyte Esterase Urine Ascorbic Acid 07/01/18 07/01/18 00:39 01:45 RDW Plt Count Lymphocytes % Glucose POC Glucose 239 H Lactic Acid Calcium Total Bilirubin Direct Bilirubin AST Urine Protein 30 H Urine Glucose (UA) 150 H Urine Ketones TRACE H Urine Blood SMALL H Urine Bilirubin SMALL H Urine Urobilinogen 4.0 H Ur Leukocyte Esterase TRACE H Urine Ascorbic Acid 40 H Discharge - Discharge Clinical Impression: Encephalopathy acute, Thrombocytopenia Sepsis Qualifiers: Sepsis type: sepsis due to unspecified organism Qualified Code(s): A41.9 - Sepsis, unspecified organism Pneumonia Qualifiers: Pneumonia type: due to unspecified organism Laterality: left Lung location: lower lobe of lung Qualified Code(s): J18.1 - Lobar pneumonia, unspecified organism UTI (urinary tract infection) Qualifiers: Urinary tract infection type: site unspecified Hematuria presence: without hematuria Qualified Code(s): N39.0 - Urinary tract infection, site not specified Condition: Stable Disposition: ADMITTED INPATIENT Admitting Provider: Hospitalist - DR. HARPER Unit Admitted: Telemetry Referrals: LORRAINE BRUMFIELD MD [HONORARY] - Follow up as needed
[2018-07-01 00:42] LABS: VENOUS BLOOD BASE EXCESS 0.4 mmol/L; VENOUS BLOOD HCO3 24.7 mmol/L (20-32); VENOUS BLOOD PCO2 38.8 mmHg (35-63); VENOUS BLOOD PH 7.42 (7.30-7.42)
[2018-07-01 00:43] LABS: ABSOLUTE EOSINOPHILS # (AUTO) 0.1 10^3/uL (0.0-0.6); ABSOLUTE LYMPHOCYTES (AUTO) 0.8 10^3/uL (0.5-4.7); ABSOLUTE MONOCYTES (AUTO) 0.9 10^3/uL (0.1-1.4); ABSOLUTE NEUT (AUTO) 5.5 10^3/uL (1.7-8.2); BASOPHILS % (AUTO) 0.2 % (0-2); EOSINOPHILS % (AUTO) 1.5 % (0-6); HEMATOCRIT 39.8 % (37.9-51.0); HEMOGLOBIN 13.6 g/dL (13.5-17.0); LYMPHOCYTES % (AUTO) 10.8 % (13-45); MEAN CORPUSCULAR HEMOGLOBIN 30.6 pg (27.0-33.4); MEAN CORPUSCULAR HGB CONC 34.1 g/dL (32.0-36.0); MEAN CORPUSCULAR VOLUME 90 fl (80-97); MONOCYTES % (AUTO) 11.7 % (3-13); RED BLOOD COUNT 4.43 10^6/uL (4.35-5.55); RED CELL DISTRIBUTION WIDTH 14.7 % (11.5-14.0); SEGMENTED NEUTROPHILS % (AUTO) 75.8 % (42-78); TOTAL CELLS COUNTED % (AUTO) 100 %; WHITE BLOOD COUNT 7.3 10^3/uL (4.0-10.5)
--- NOTE | 2018-07-01 00:44 | RADIOLOGY REPORT (SQ) ---
PROCEDURE: XR CHEST 1 VIEW HISTORY: COUGH, FEVER COMPARISON: None TECHNIQUE: The study was done on 07/01/2018 at 12:28 AM local time Single projection of the chest was done. FINDINGS: There is median sternotomy . There are no discrete airspace infiltrates, pneumothoraces or pleural effusions. The pulmonary vascularity is normal. The cardiomediastinal silhouette is suggestive of mild to moderate cardiomegaly. IMPRESSION: There is no acute pleural-parenchymal process seen in the imaged lung araujo. Mild to moderate cardiomegaly
[2018-07-01 00:52] LABS: INTERNATIONAL RATION (INR) 1.11; PROTHROMBIN TIME 14.9 SEC (11.4-15.4)
[2018-07-01 00:56] LABS: ALANINE AMINOTRANSFERASE 58 U/L (21-72); ALBUMIN 4.2 g/dL (3.5-5.0); ALKALINE PHOSPHATASE 74 U/L (38-126); ANION GAP 14 (5-19); ASPARTATE AMINO TRANSFERASE 66 U/L (17-59); BILIRUBIN,DIRECT 0.7 mg/dL (0.0-0.4); BILIRUBIN,TOTAL 1.6 mg/dL (0.2-1.3); BLOOD UREA NITROGEN 9 mg/dL (7-20); CALCIUM 10.4 mg/dL (8.4-10.2); CARBON DIOXIDE 24 mmol/L (22-30); CHLORIDE 102 mmol/L (98-107); GLUCOSE 242 mg/dL (75-110); POTASSIUM 4.4 mmol/L (3.6-5.0); SODIUM 140.3 mmol/L (137-145); TOTAL PROTEIN 7.2 g/dL (6.3-8.2)
[2018-07-01] MEDS ORDERED: RINGERS SOLUTION,LACTATED 2,000 ML IV ONE (01:01)
[2018-07-01 01:02] LABS: PLATELET COUNT 39 10^3/uL (150-450)
[2018-07-01] MEDS ORDERED: LIDOCAINE 2% URO-JET 5 ML KIT MM ONE (01:30)
[2018-07-01] MEDS ORDERED: VANCOMYCIN HCL INJ 1000 MG VIAL IV ONE (01:56)
[2018-07-01] MEDS ORDERED: CEFTRIAXONE INJ 1000 MG VIAL IV ONE (01:56)
[2018-07-01 02:54] LABS: APPEARANCE,URINE SLIGHTLY-CLOUDY; BILIRUBIN,URINE SMALL (NEGATIVE); GLUCOSE, URINE 150 mg/dL (NEGATIVE); KETONES,URINE TRACE mg/dL (NEGATIVE); LEUKOCYTE ESTERASE,URINE TRACE (NEGATIVE); NITRITE,URINE NEGATIVE (NEGATIVE); PROTEIN,URINE 30 mg/dL (NEGATIVE); URINE SPECIFIC GRAVITY 1.031
[2018-07-01 02:56] LABS: COLOR,URINE DARK YELLOW
[2018-07-01] MEDS ORDERED: ONDANSETRON HCL INJ/PF 4 MG/2 ML SDV IV PRN (03:05)
[2018-07-01] MEDS ORDERED: AZITHROMYCIN INJ 500 MG VIAL IV ONE (03:06)
[2018-07-01] MEDS ORDERED: VANCOMYCIN HCL 0 MG in DEXTROSE 5%-WATER 250 ML IV NR (03:15)
--- NOTE | 2018-07-01 07:29 | PDOC H&P ---
History of Present Illness Admission Date/PCP: 07/01/18 03:21 KAVON PULLIAM MD Patient complains of: AMS, possible UTI History of Present Illness: TRACI FLORES is a 78 year old male presents to the emergency department with fever. Patient has an underlying diagnosis of dementia, is alert oriented x2 at baseline per family reported to the emergency department that he was acutely altered beyond his baseline. Patient is also complaining of left flank pain. No family currently present at bedside. Patient is alert oriented x2 at this time. Does not appear to be any acute distress. He is very hard of hearing and unable to provide much meaningful history of present illness. According to conversation with family patient becomes more altered when he has an infection, particularly urinary tract infection. Patient currently denies pain or burning with urination or hematuria. Past Medical History Cardiac Medical History: Reports: Myocardial Infarction - 1998 , Hyperlipidema, Hypertension Denies: Coronary Artery Disease Pulmonary Medical History: Denies: Bronchitis, Chronic Obstructive Pulmonary Disease (COPD), Pneumonia Neurological Medical History: Denies: Seizures Endocrine Medical History: Reports: Diabetes Mellitus Type 2 Musculoskeltal Medical History: Denies: Arthritis Psychiatric Medical History: Reports: Depression Hematology: Reports: Anemia Past Surgical History Past Surgical History: Reports: Coronary Artery Bypass Graft Social History Information Source: Patient Lives with: Family Smoking Status: Unknown if Ever Smoked Frequency of Alcohol Use: None Hx Recreational Drug Use: No Drugs: None Hx Prescription Drug Abuse: No Family History Family History: Reviewed & Not Pertinent Parental Family History Reviewed: No Children Family History Reviewed: No Sibling(s) Family History Reviewed.: No Medication/Allergy Allergies/Adverse Reactions: No Known Allergies Allergy (Unverified 03/11/16 09:55) Review of Systems ROS unobtainable: Due to mental status Constitutional: PRESENT: fever(s) Cardiovascular: ABSENT: chest pain Respiratory: ABSENT: dyspnea Gastrointestinal: ABSENT: abdominal pain Genitourinary: ABSENT: difficulty urinating, hematuria Physical Exam Vital Signs: Temp Pulse Resp BP Pulse Ox 97.8 F 80 18 156/63 H 99 07/01/18 06:15 07/01/18 06:15 07/01/18 06:15 07/01/18 06:15 07/01/18 06:15 Intake & Output 06/30/18 07/01/18 07/02/18 06:59 06:59 06:59 Intake Total 517 Balance 517 Weight 102.4 kg General appearance: PRESENT: no acute distress, well-developed, well-nourished Head exam: PRESENT: atraumatic, normocephalic Eye exam: PRESENT: conjunctiva pink, EOMI, PERRLA. ABSENT: scleral icterus Ear exam: PRESENT: normal external ear exam Mouth exam: PRESENT: moist, tongue midline Neck exam: ABSENT: carotid bruit, JVD, lymphadenopathy, thyromegaly Respiratory exam: PRESENT: clear to auscultation pam. ABSENT: rales, rhonchi, wheezes Cardiovascular exam: PRESENT: RRR. ABSENT: diastolic murmur, rubs, systolic murmur Pulses: PRESENT: normal dorsalis pedis pul Vascular exam: PRESENT: normal capillary refill GI/Abdominal exam: PRESENT: normal bowel sounds, soft. ABSENT: distended, guarding, mass, organolmegaly, rebound, tenderness Rectal exam: PRESENT: deferred Extremities exam: PRESENT: full ROM. ABSENT: calf tenderness, clubbing, pedal edema Neurological exam: PRESENT: alert, awake, oriented to person, oriented to place , CN II-XII grossly intact, other - dementia at baseline. ABSENT: oriented to time, oriented to situation, motor sensory deficit Psychiatric exam: PRESENT: appropriate affect, normal mood. ABSENT: homicidal ideation, suicidal ideation Skin exam: PRESENT: dry, intact, warm. ABSENT: cyanosis, rash Results Laboratory Results: 07/01/18 04:45 Lactic Acid 4.2 H 07/01/18 07/01/18 07/01/18 00:20 00:20 01:45 WBC 7.3 Sodium 140.3 Potassium 4.4 Creatinine 0.80 Urine Protein 30 H Urine Glucose (UA) 150 H Urine Ketones TRACE H Urine Blood SMALL H Urine Bilirubin SMALL H Urine Urobilinogen 4.0 H Ur Leukocyte Esterase TRACE H Urine Bacteria (Auto) TRACE Impressions: Chest X-Ray 07/01/18 00:06 IMPRESSION: There is no acute pleural-parenchymal process seen in the imaged lung araujo. Mild to moderate cardiomegaly Assessment & Plan - Diagnosis (1) Sepsis Qualifiers: Sepsis type: sepsis due to unspecified organism Qualified Code(s): A41.9 - Sepsis, unspecified organism Is this a current diagnosis for this admission?: Yes (2) Encephalopathy acute Is this a current diagnosis for this admission?: Yes (3) Pneumonia Qualifiers: Pneumonia type: due to unspecified organism Laterality: left Lung location: lower lobe of lung Qualified Code(s): J18.1 - Lobar pneumonia, unspecified organism Is this a current diagnosis for this admission?: Yes (4) UTI (urinary tract infection) Qualifiers: Urinary tract infection type: site unspecified Hematuria presence: without hematuria Qualified Code(s): N39.0 - Urinary tract infection, site not specified Is this a current diagnosis for this admission?: Yes - Time Time Spent: 30 to 50 Minutes Medications reviewed and adjusted accordingly: Yes Anticipated discharge: Home - Inpatient Certification Medical Necessity: Need For IV Fluids, Need for IV Antibiotics - Plan Summary Plan Summary: Patient to be admitted to [facility] secondary to sepsis potentially secondary to urinary tract infection versus pneumonia. Patient is alert oriented x2 and unable to provide much meaningful history of present illness. No family present at bedside. Sepsis protocol initiated. Maintain IV fluids overnight. Patient started on vancomycin, Rocephin plus azithromycin. To be continued on this regimen. Blood, urine cultures pending. Continue patient's home medications. Repeat CBC, BMP this a.m. We will continue to monitor closely and adjust accordingly
--- NOTE | 2018-07-01 08:50 | EKG REPORT ---
SEVERITY:- ABNORMAL ECG - SINUS TACHYCARDIA LEFT AXIS DEVIATION LVH WITH SECONDARY REPOLARIZATION ABNORMALITY : Confirmed by: Kellen Walter 01-Jul-2018 08:49:44
[2018-07-01] MEDS ORDERED: RINGERS SOLUTION,LACTATED 1,000 ML IV ONE (08:56)
[2018-07-01] MEDS: FAMOTIDINE INJ/PF 20 MG/2 ML SDV IV SCH ×2 (09:49→21:19)
[2018-07-01] MEDS: AZITHROMYCIN 500 MG in DEXTROSE 5%-WATER 250 ML IV SCH (09:51)
[2018-07-01] MEDS ORDERED: CEFTRIAXONE 1 GM/D5W RTU 1 GM/50 ML RTUPB IV SCH (10:00)
[2018-07-01] MEDS: VANCOMYCIN HCL 1,250 MG in DEXTROSE 5%-WATER 250 ML IV SCH (17:31)
[2018-07-01] MEDS: NORMAL SALINE 1000 ML 1,000 ML IV PRN (17:32)
[2018-07-01] MEDS: CEFTRIAXONE SODIUM 1,000 MG in DEXTROSE 5%-WATER 50 ML IV SCH (21:20)
[2018-07-02] MEDS: NORMAL SALINE 1000 ML 1,000 ML IV PRN ×2 (03:08→16:01)
[2018-07-02 04:52] LABS: ABSOLUTE EOSINOPHILS # (AUTO) 0.1 10^3/uL (0.0-0.6); ABSOLUTE LYMPHOCYTES (AUTO) 0.9 10^3/uL (0.5-4.7); ABSOLUTE MONOCYTES (AUTO) 0.4 10^3/uL (0.1-1.4); ABSOLUTE NEUT (AUTO) 1.8 10^3/uL (1.7-8.2); BASOPHILS % (AUTO) 0.4 % (0-2); EOSINOPHILS % (AUTO) 2.3 % (0-6); HEMATOCRIT 32.7 % (37.9-51.0); LYMPHOCYTES % (AUTO) 28.8 % (13-45); MEAN CORPUSCULAR HEMOGLOBIN 30.8 pg (27.0-33.4); MEAN CORPUSCULAR HGB CONC 34.4 g/dL (32.0-36.0); MEAN CORPUSCULAR VOLUME 89 fl (80-97); MONOCYTES % (AUTO) 12.2 % (3-13); RED BLOOD COUNT 3.65 10^6/uL (4.35-5.55); RED CELL DISTRIBUTION WIDTH 14.8 % (11.5-14.0); SEGMENTED NEUTROPHILS % (AUTO) 56.3 % (42-78); TOTAL CELLS COUNTED % (AUTO) 100 %; WHITE BLOOD COUNT 3.1 10^3/uL (4.0-10.5)
[2018-07-02 04:59] LABS: HEMOGLOBIN 11.2 g/dL (13.5-17.0)
[2018-07-02] MEDS: VANCOMYCIN HCL 1,250 MG in DEXTROSE 5%-WATER 250 ML IV SCH ×2 (05:05→17:32)
[2018-07-02 05:14] LABS: ANION GAP 11 (5-19); BLOOD UREA NITROGEN 7 mg/dL (7-20); CALCIUM 9.5 mg/dL (8.4-10.2); CARBON DIOXIDE 24 mmol/L (22-30); CHLORIDE 105 mmol/L (98-107); GLUCOSE 216 mg/dL (75-110); POTASSIUM 4.1 mmol/L (3.6-5.0); SODIUM 140.2 mmol/L (137-145)
[2018-07-02] MEDS: ENOXAPARIN SODIUM INJ 40 MG/0.4 ML DISP.SYRIN SUBCUT SCH (10:52)
[2018-07-02] MEDS: AZITHROMYCIN 500 MG in DEXTROSE 5%-WATER 250 ML IV SCH (11:07)
[2018-07-02] MEDS: FAMOTIDINE INJ/PF 20 MG/2 ML SDV IV SCH ×2 (11:07→21:19)
--- NOTE | 2018-07-02 15:17 | PDOC PROGRESS REPORT ---
Subjective Progress Note for:: 07/02/18 Subjective:: No adverse events overnight. He is been afebrile. His appetite is picked up substantially. He is much more talkative than he was yesterday. His niece is with him and she says his mental status is at its baseline today. She also says that he needs a fair bit of assistance to get around at home. Reason For Visit: SEPSIS,UTI Physical Exam Vital Signs: Temp Pulse Resp BP Pulse Ox 98.7 F 95 18 152/68 H 98 07/02/18 12:00 07/02/18 12:00 07/02/18 12:00 07/02/18 12:00 07/02/18 12:00 Intake & Output 07/01/18 07/02/18 07/03/18 06:59 06:59 06:59 Intake Total 517 4895 Output Total 1005 Balance 517 3890 Weight 102.4 kg 101.6 kg General appearance: PRESENT: no acute distress, cooperative, disheveled, hard of hearing, obese Respiratory exam: PRESENT: clear to auscultation pam, unlabored. ABSENT: accessory muscle use, rales, rhonchi, tachypnea, wheezes Cardiovascular exam: PRESENT: RRR, +S1, +S2 Pulses: PRESENT: normal radial pulses, normal dorsalis pedis pul Vascular exam: PRESENT: normal capillary refill GI/Abdominal exam: PRESENT: normal bowel sounds, soft. ABSENT: distended, guarding, rebound, tenderness Extremities exam: ABSENT: clubbing, joint swelling, pedal edema Musculoskeletal exam: PRESENT: normal inspection. ABSENT: deformity Neurological exam: PRESENT: alert, awake, oriented to person, oriented to place Skin exam: PRESENT: dry, warm Results Laboratory Results: 07/02/18 04:07 07/02/18 04:07 07/02/18 07/02/18 07/02/18 04:07 04:07 11:12 WBC 3.1 L RBC 3.65 L Hgb 11.2 L D Hct 32.7 L MCV 89 MCH 30.8 MCHC 34.4 RDW 14.8 H Plt Count 28 L* Seg Neutrophils % 56.3 Lymphocytes % 28.8 Monocytes % 12.2 Eosinophils % 2.3 Basophils % 0.4 Absolute Neutrophils 1.8 Absolute Lymphocytes 0.9 Absolute Monocytes 0.4 Absolute Eosinophils 0.1 Absolute Basophils 0.0 Sodium 140.2 Potassium 4.1 Chloride 105 Carbon Dioxide 24 Anion Gap 11 BUN 7 Creatinine 0.71 Est GFR ( Amer) > 60 Est GFR (Non-Af Amer) > 60 Glucose 216 H Lactic Acid 3.7 H Calcium 9.5 Impressions: Chest X-Ray 07/01/18 00:06 IMPRESSION: There is no acute pleural-parenchymal process seen in the imaged lung araujo. Mild to moderate cardiomegaly Assessment & Plan - Diagnosis (1) Sepsis Qualifiers: Sepsis type: sepsis due to unspecified organism Qualified Code(s): A41.9 - Sepsis, unspecified organism Is this a current diagnosis for this admission?: Yes Plan: Resolved (2) UTI (urinary tract infection) Qualifiers: Urinary tract infection type: site unspecified Hematuria presence: without hematuria Qualified Code(s): N39.0 - Urinary tract infection, site not specified Is this a current diagnosis for this admission?: Yes Plan: Gram-positive cocci in chains in the urine. Continue Rocephin. Follow-up cultures. (3) Thrombocytopenia Is this a current diagnosis for this admission?: Yes Plan: Lovenox has been held. - Time Time Spent with patient: 25-34 minutes
[2018-07-02] MEDS: CEFTRIAXONE SODIUM 1,000 MG in DEXTROSE 5%-WATER 50 ML IV SCH (21:19)
[2018-07-03] MEDS: NORMAL SALINE 1000 ML 1,000 ML IV PRN ×2 (00:31→13:37)
[2018-07-03] MEDS: VANCOMYCIN HCL 1,250 MG in DEXTROSE 5%-WATER 250 ML IV SCH ×2 (06:04→18:06)
[2018-07-03 06:43] LABS: VANCOMYCIN,TROUGH 13.8 ug/mL (5.0-20.0)
[2018-07-03] MEDS: FAMOTIDINE INJ/PF 20 MG/2 ML SDV IV SCH ×2 (09:12→21:37)
[2018-07-03] MEDS: AZITHROMYCIN 500 MG in DEXTROSE 5%-WATER 250 ML IV SCH (09:12)
--- NOTE | 2018-07-03 12:07 | PDOC PROGRESS REPORT ---
Subjective Progress Note for:: 07/03/18 Subjective:: Patient was seen early on today. He states that he is better. He appears to be awake and oriented. He tells me that he will be going back home on discharge. His mental status apparently is improving. Reason For Visit: SEPSIS,UTI Physical Exam Vital Signs: Temp Pulse Resp BP Pulse Ox 97.5 F 92 18 171/88 H 99 07/03/18 08:00 07/03/18 08:00 07/03/18 08:00 07/03/18 08:00 07/03/18 08:00 Intake & Output 07/02/18 07/03/18 07/04/18 06:59 06:59 06:59 Intake Total 4895 3890 250 Output Total 1005 300 Balance 3890 3590 250 Weight 101.6 kg 103 kg General appearance: PRESENT: no acute distress, obese, well-developed, well- nourished Head exam: PRESENT: atraumatic, normocephalic Eye exam: PRESENT: conjunctiva pink, EOMI, PERRLA. ABSENT: scleral icterus Ear exam: PRESENT: normal external ear exam Mouth exam: PRESENT: moist, tongue midline Neck exam: ABSENT: carotid bruit, JVD, lymphadenopathy, thyromegaly Respiratory exam: PRESENT: clear to auscultation pam. ABSENT: rales, rhonchi, wheezes Cardiovascular exam: PRESENT: RRR. ABSENT: diastolic murmur, rubs, systolic murmur Pulses: PRESENT: normal dorsalis pedis pul Vascular exam: PRESENT: normal capillary refill GI/Abdominal exam: PRESENT: normal bowel sounds, soft. ABSENT: distended, guarding, mass, organolmegaly, rebound, tenderness Rectal exam: PRESENT: deferred Extremities exam: PRESENT: full ROM. ABSENT: calf tenderness, clubbing, pedal edema Neurological exam: PRESENT: alert, awake, oriented to person, oriented to place , oriented to time, oriented to situation, CN II-XII grossly intact. ABSENT: motor sensory deficit Psychiatric exam: PRESENT: appropriate affect, normal mood. ABSENT: homicidal ideation, suicidal ideation Skin exam: PRESENT: dry, intact, warm. ABSENT: cyanosis, rash Results Laboratory Results: 07/02/18 04:07 07/02/18 04:07 07/02/18 15:34 Lactic Acid 3.1 H Impressions: Chest X-Ray 07/01/18 00:06 IMPRESSION: There is no acute pleural-parenchymal process seen in the imaged lung araujo. Mild to moderate cardiomegaly Assessment & Plan - Time Time Spent with patient: 15-24 minutes Medications reviewed and adjusted accordingly: Yes Anticipated discharge: Home with Homehealth Within: within 48 hours - Inpatient Certification Based on my medical assessment, after consideration of the patient's comorbidities, presenting symptoms, or acuity I expect that the services needed warrant INPATIENT care.: Yes Medical Necessity: Need for IV Antibiotics, Risk of Complication if Not Cared For in Hospital - Plan Summary Plan Summary: 1.Sepsis secondary to urinary tract infection resolved 2. Urinary tract infection secondary to gram-positive cocci in chains we will follow-up on cultures he is currently on Rocephin as well as Vancomycin 3. Pjmrtfc-scfyfkfcd-Cxnyohv has been held. There is no evidence of bleeding. Will recheck CBC in a.m.
[2018-07-03] MEDS: ENOXAPARIN SODIUM INJ 40 MG/0.4 ML DISP.SYRIN SUBCUT SCH (13:36)
[2018-07-03 17:06] LABS: PLATELET COUNT 28 10^3/uL (150-450)
[2018-07-03] MEDS ORDERED: (PENDING PHARMACY ID) (Metformin Hcl [Glucophage Xr 500 Mg Tablet] 500 MG) PO SCH (18:00)
[2018-07-03] MEDS: GLIMEPIRIDE 1 MG TABLET PO SCH (18:06)
[2018-07-03] MEDS: ACETAMINOPHEN 325 MG TABLET PO PRN (18:06)
[2018-07-03] MEDS: BACLOFEN 10 MG TABLET PO SCH (18:06)
[2018-07-03] MEDS ORDERED: DEXTROSE 50%-WATER SYRINGE 12.5 GM/25 ML DOSE IV PRN (18:35)
[2018-07-03] MEDS ORDERED: DEXTROSE 40% GEL 15 GM TUBE PO PRN (18:35)
[2018-07-03] MEDS ORDERED: DEXTROSE 40% GEL 15 GM TUBE X 2 PO PRN (18:35)
[2018-07-03] MEDS ORDERED: DEXTROSE 50%-WATER SYRINGE 25 GM/50 ML DOSE IV PRN (18:35)
[2018-07-03] MEDS ORDERED: GLUCAGON,HUMAN RECOMB 1 MG INJ IM PRN (18:35)
[2018-07-03] MEDS ORDERED: INSULIN LISPRO 100 UNIT/ML 3 ML VIAL SUBCUT ONE (18:45)
[2018-07-03] MEDS: ATORVASTATIN CALCIUM 10 MG TABLET PO SCH (21:35)
[2018-07-03] MEDS: METOPROLOL TARTRATE 25 MG TABLET PO SCH (21:35)
[2018-07-03] MEDS: CEFTRIAXONE SODIUM 1,000 MG in DEXTROSE 5%-WATER 50 ML IV SCH (21:35)
[2018-07-03] MEDS: CARBOXYMETHYLCELLULOSE SOD 0.5% 0.4 ML DROPERETTE OU SCH (21:38)
[2018-07-03] MEDS: INSULIN LISPRO 100 UNIT/ML 3 ML VIAL SUBCUT PRN (21:55)
[2018-07-04] MEDS: VANCOMYCIN HCL 1,250 MG in DEXTROSE 5%-WATER 250 ML IV SCH (06:05)
[2018-07-04 06:58] LABS: ABSOLUTE EOSINOPHILS # (AUTO) 0.1 10^3/uL (0.0-0.6); ABSOLUTE LYMPHOCYTES (AUTO) 0.9 10^3/uL (0.5-4.7); ABSOLUTE MONOCYTES (AUTO) 0.3 10^3/uL (0.1-1.4); ABSOLUTE NEUT (AUTO) 1.7 10^3/uL (1.7-8.2); BASOPHILS % (AUTO) 0.1 % (0-2); EOSINOPHILS % (AUTO) 3.1 % (0-6); HEMATOCRIT 37.1 % (37.9-51.0); LYMPHOCYTES % (AUTO) 29.2 % (13-45); MEAN CORPUSCULAR HEMOGLOBIN 31.1 pg (27.0-33.4); MEAN CORPUSCULAR VOLUME 89 fl (80-97); MONOCYTES % (AUTO) 10.3 % (3-13); RED BLOOD COUNT 4.18 10^6/uL (4.35-5.55); RED CELL DISTRIBUTION WIDTH 14.6 % (11.5-14.0); SEGMENTED NEUTROPHILS % (AUTO) 57.3 % (42-78); TOTAL CELLS COUNTED % (AUTO) 100 %
[2018-07-04 07:21] LABS: PLATELET COUNT 32 10^3/uL (150-450)
[2018-07-04 07:28] LABS: ANION GAP 9 (5-19); BLOOD UREA NITROGEN 7 mg/dL (7-20); CALCIUM 9.3 mg/dL (8.4-10.2); CARBON DIOXIDE 27 mmol/L (22-30); CHLORIDE 104 mmol/L (98-107); GLUCOSE 192 mg/dL (75-110); POTASSIUM 4.2 mmol/L (3.6-5.0); SODIUM 140.2 mmol/L (137-145)
[2018-07-04] MEDS ORDERED: SERTRALINE HCL 50 MG TABLET PO SCH (10:00)
[2018-07-04] MEDS: AZITHROMYCIN 500 MG in DEXTROSE 5%-WATER 250 ML IV SCH (10:02)
[2018-07-04] MEDS: GLIMEPIRIDE 1 MG TABLET PO SCH ×2 (10:04→18:06)
[2018-07-04] MEDS: BACLOFEN 10 MG TABLET PO SCH ×3 (10:04→18:07)
[2018-07-04] MEDS: LOSARTAN POTASSIUM 50 MG TABLET PO SCH (10:04)
[2018-07-04] MEDS: METFORMIN HCL 500 MG TABLET PO SCH ×2 (10:04→18:06)
[2018-07-04] MEDS: FINASTERIDE 5 MG TABLET PO SCH (10:05)
[2018-07-04] MEDS: METOPROLOL TARTRATE 25 MG TABLET PO SCH ×2 (10:05→21:20)
[2018-07-04] MEDS: CARBOXYMETHYLCELLULOSE SOD 0.5% 0.4 ML DROPERETTE OU SCH ×2 (10:07→21:21)
[2018-07-04] MEDS: FAMOTIDINE INJ/PF 20 MG/2 ML SDV IV SCH ×2 (10:08→21:19)
[2018-07-04] MEDS: INSULIN LISPRO 100 UNIT/ML 3 ML VIAL SUBCUT PRN ×3 (11:15→23:22)
--- NOTE | 2018-07-04 13:17 | PDOC PROGRESS REPORT ---
Subjective Progress Note for:: 07/04/18 Subjective:: Patient was seen with his and son in the room today. Extensive discussions with the and all her questions were answered. Patient himself was still sleeping but easily arousable Reason For Visit: SEPSIS,UTI Physical Exam Vital Signs: Temp Pulse Resp BP Pulse Ox 97.7 F 70 16 152/77 H 100 07/04/18 08:32 07/04/18 08:32 07/04/18 08:32 07/04/18 08:32 07/04/18 08:32 Intake & Output 07/03/18 07/04/18 07/05/18 06:59 06:59 06:59 Intake Total 3890 2270 Output Total 300 925 Balance 3590 1345 Weight 103 kg 104.2 kg General appearance: PRESENT: no acute distress, well-developed, well-nourished Head exam: PRESENT: atraumatic, normocephalic Eye exam: PRESENT: conjunctiva pink, EOMI, PERRLA. ABSENT: scleral icterus Ear exam: PRESENT: normal external ear exam Mouth exam: PRESENT: moist, tongue midline Neck exam: ABSENT: carotid bruit, JVD, lymphadenopathy, thyromegaly Respiratory exam: PRESENT: clear to auscultation pam. ABSENT: rales, rhonchi, wheezes Cardiovascular exam: PRESENT: RRR. ABSENT: diastolic murmur, rubs, systolic murmur Pulses: PRESENT: normal dorsalis pedis pul Vascular exam: PRESENT: normal capillary refill GI/Abdominal exam: PRESENT: normal bowel sounds, soft. ABSENT: distended, guarding, mass, organolmegaly, rebound, tenderness Rectal exam: PRESENT: deferred Extremities exam: PRESENT: full ROM. ABSENT: calf tenderness, clubbing, pedal edema Neurological exam: PRESENT: alert, awake. ABSENT: motor sensory deficit Psychiatric exam: PRESENT: appropriate affect, normal mood. ABSENT: homicidal ideation, suicidal ideation Skin exam: PRESENT: dry, intact, warm. ABSENT: cyanosis, rash Results Laboratory Results: 07/04/18 06:37 07/04/18 06:37 07/02/18 07/04/18 07/04/18 04:07 04:19 04:19 WBC Cancelled RBC Cancelled Hgb Cancelled Hct Cancelled MCV Cancelled MCH Cancelled MCHC Cancelled RDW Cancelled Plt Count 28 L* Cancelled Seg Neutrophils % Cancelled Lymphocytes % Cancelled Monocytes % Cancelled Eosinophils % Cancelled Basophils % Cancelled Absolute Neutrophils Cancelled Absolute Lymphocytes Cancelled Absolute Monocytes Cancelled Absolute Eosinophils Cancelled Absolute Basophils Cancelled Sodium Cancelled Potassium Cancelled Chloride Cancelled Carbon Dioxide Cancelled Anion Gap Cancelled BUN Cancelled Creatinine Cancelled Est GFR ( Amer) Cancelled Est GFR (Non-Af Amer) Cancelled Glucose Cancelled Calcium Cancelled Ammonia 07/04/18 07/04/18 07/04/18 06:37 06:37 06:37 WBC 3.0 L RBC 4.18 L Hgb 13.0 L Hct 37.1 L MCV 89 MCH 31.1 MCHC 35.0 RDW 14.6 H Plt Count 32 L Seg Neutrophils % 57.3 Lymphocytes % 29.2 Monocytes % 10.3 Eosinophils % 3.1 Basophils % 0.1 Absolute Neutrophils 1.7 Absolute Lymphocytes 0.9 Absolute Monocytes 0.3 Absolute Eosinophils 0.1 Absolute Basophils 0.0 Sodium 140.2 Potassium 4.2 Chloride 104 Carbon Dioxide 27 Anion Gap 9 BUN 7 Creatinine 0.69 Est GFR ( Amer) > 60 Est GFR (Non-Af Amer) > 60 Glucose 192 H Calcium 9.3 Ammonia 11.2 Impressions: Chest X-Ray 07/01/18 00:06 IMPRESSION: There is no acute pleural-parenchymal process seen in the imaged lung araujo. Mild to moderate cardiomegaly Assessment & Plan - Time Time Spent with patient: 25-34 minutes Anticipated discharge: Home Within: within 48 hours - Inpatient Certification Based on my medical assessment, after consideration of the patient's comorbidities, presenting symptoms, or acuity I expect that the services needed warrant INPATIENT care.: Yes Medical Necessity: Significant Comorbidiites Make Outpatient Treatment Too Risky , Need For IV Fluids, Risk of Complication if Not Cared For in Hospital - Plan Summary Plan Summary: 1.Sepsis secondary to urinary tract infection resolved 2. Urinary tract infection secondary to enterococcus. Discontinued all his IV antibiotics and placed him on ampicillin. 3. Fouzoux-bcczwmnos-S-this is chronic. I discussed with the and she tells me that he sees a sole blacker in [place] and this is something that is been ongoing although she cannot tell me the precise diagnosis. She says is never been placed on prednisone as well as she knows. At this time is longer there is no evidence of bleeding I will defer these to his sole blacker 4. Distal plan is for possible acute rehab versus home. We will get physical therapy consult
[2018-07-04] MEDS: AMPICILLIN TRIHYD 500 MG CAPSULE PO SCH ×3 (14:24→23:21)
[2018-07-04] MEDS: NORMAL SALINE 1000 ML 1,000 ML IV PRN ×2 (14:28→23:46)
[2018-07-04] MEDS: ATORVASTATIN CALCIUM 10 MG TABLET PO SCH (21:21)
[2018-07-04] MEDS: SERTRALINE HCL 50 MG TABLET PO SCH (21:45)
[2018-07-05] MEDS: AMPICILLIN TRIHYD 500 MG CAPSULE PO SCH ×3 (05:57→18:54)
[2018-07-05] MEDS: NORMAL SALINE 1000 ML 1,000 ML IV PRN (08:43)
[2018-07-05] MEDS: METFORMIN HCL 500 MG TABLET PO SCH ×2 (08:45→18:49)
[2018-07-05] MEDS: FAMOTIDINE INJ/PF 20 MG/2 ML SDV IV SCH (11:02)
[2018-07-05] MEDS: LOSARTAN POTASSIUM 50 MG TABLET PO SCH (11:03)
[2018-07-05] MEDS: FINASTERIDE 5 MG TABLET PO SCH (11:03)
[2018-07-05] MEDS: METOPROLOL TARTRATE 25 MG TABLET PO SCH ×2 (11:03→21:41)
[2018-07-05] MEDS: CARBOXYMETHYLCELLULOSE SOD 0.5% 0.4 ML DROPERETTE OU SCH ×2 (11:03→21:42)
[2018-07-05] MEDS: BACLOFEN 10 MG TABLET PO SCH ×3 (11:06→18:49)
[2018-07-05] MEDS: GLIMEPIRIDE 1 MG TABLET PO SCH ×2 (11:06→19:10)
--- NOTE | 2018-07-05 11:27 | PDOC PROGRESS REPORT ---
Subjective Progress Note for:: 07/05/18 Subjective:: Patient was seen with family at bedside today. He is awake and alert and appears to be close to his baseline. He was just seen by physical therapy and it appears patient will need acute short-term rehab prior to returning home. Reason For Visit: SEPSIS,UTI Physical Exam Vital Signs: Temp Pulse Resp BP Pulse Ox 97.9 F 73 18 143/52 H 100 07/05/18 08:00 07/05/18 08:00 07/05/18 08:00 07/05/18 08:00 07/05/18 08:00 Intake & Output 07/04/18 07/05/18 07/06/18 06:59 06:59 06:59 Intake Total 3270 2032 1000 Output Total 925 650 Balance 2345 1382 1000 Weight 104.2 kg 106.4 kg General appearance: PRESENT: no acute distress, well-developed, well-nourished Head exam: PRESENT: atraumatic, normocephalic Eye exam: PRESENT: conjunctiva pink, EOMI, PERRLA. ABSENT: scleral icterus Ear exam: PRESENT: normal external ear exam Mouth exam: PRESENT: moist, tongue midline Neck exam: ABSENT: carotid bruit, JVD, lymphadenopathy, thyromegaly Respiratory exam: PRESENT: clear to auscultation pam. ABSENT: rales, rhonchi, wheezes Cardiovascular exam: PRESENT: RRR. ABSENT: diastolic murmur, rubs, systolic murmur Pulses: PRESENT: normal dorsalis pedis pul Vascular exam: PRESENT: normal capillary refill GI/Abdominal exam: PRESENT: normal bowel sounds, soft. ABSENT: distended, guarding, mass, organolmegaly, rebound, tenderness Rectal exam: PRESENT: deferred Extremities exam: PRESENT: full ROM. ABSENT: calf tenderness, clubbing, pedal edema Neurological exam: PRESENT: alert, awake, oriented to place, oriented to time. ABSENT: motor sensory deficit Psychiatric exam: PRESENT: appropriate affect, normal mood. ABSENT: homicidal ideation, suicidal ideation Skin exam: PRESENT: dry, intact, warm. ABSENT: cyanosis, rash Results Laboratory Results: 07/04/18 06:37 07/04/18 06:37 Impressions: Chest X-Ray 07/01/18 00:06 IMPRESSION: There is no acute pleural-parenchymal process seen in the imaged lung araujo. Mild to moderate cardiomegaly Assessment & Plan - Time Time Spent with patient: 15-24 minutes Medications reviewed and adjusted accordingly: Yes Anticipated discharge: Acute Rehab Within: within 48 hours - Inpatient Certification Based on my medical assessment, after consideration of the patient's comorbidities, presenting symptoms, or acuity I expect that the services needed warrant INPATIENT care.: Yes Medical Necessity: Need Close Monitoring Due to Risk of Patient Decompensation, Risk of Complication if Not Cared For in Hospital - Plan Summary Plan Summary: 1.Sepsis secondary to urinary tract infection resolved 2. Urinary tract infection secondary to enterococcus. Day #2 on Po ampicillin. 3. Thrombo-cytopenia--chronic, no intervention planned 4. Discharge plan is for possible acute rehab. We will get SS consult for placement
[2018-07-05] MEDS: INSULIN LISPRO 100 UNIT/ML 3 ML VIAL SUBCUT PRN (13:14)
[2018-07-05] MEDS: ACETAMINOPHEN 325 MG TABLET PO PRN (13:18)
[2018-07-05 15:10] LABS: PATH REVIEW PATHOLOGIST REVIEWED
[2018-07-05] MEDS: SERTRALINE HCL 50 MG TABLET PO SCH (21:42)
[2018-07-05] MEDS: ATORVASTATIN CALCIUM 10 MG TABLET PO SCH (21:42)
[2018-07-05] MEDS: FAMOTIDINE 20 MG TABLET PO SCH (21:44)
[2018-07-06] MEDS: AMPICILLIN TRIHYD 500 MG CAPSULE PO SCH ×4 (00:25→17:43)
[2018-07-06] MEDS: LOSARTAN POTASSIUM 50 MG TABLET PO SCH (10:25)
[2018-07-06] MEDS: FAMOTIDINE 20 MG TABLET PO SCH ×2 (10:25→22:06)
[2018-07-06] MEDS: FINASTERIDE 5 MG TABLET PO SCH (10:26)
[2018-07-06] MEDS: METOPROLOL TARTRATE 25 MG TABLET PO SCH ×2 (10:26→22:07)
[2018-07-06] MEDS: BACLOFEN 10 MG TABLET PO SCH ×3 (10:26→17:43)
[2018-07-06] MEDS: CARBOXYMETHYLCELLULOSE SOD 0.5% 0.4 ML DROPERETTE OU SCH ×2 (10:26→22:07)
[2018-07-06] MEDS: GLIMEPIRIDE 1 MG TABLET PO SCH ×2 (10:29→17:43)
[2018-07-06] MEDS: METFORMIN HCL 500 MG TABLET PO SCH ×2 (10:29→17:42)
--- NOTE | 2018-07-06 14:39 | PDOC PROGRESS REPORT ---
Subjective Progress Note for:: 07/06/18 Subjective:: Patient was seen with family at bedside today. He is awake and alert and appears to be close to his baseline. He was seen by physical therapy and it appears patient will need acute short-term rehab prior to returning home. Currently awaiting placement Reason For Visit: SEPSIS,UTI Physical Exam Vital Signs: Temp Pulse Resp BP Pulse Ox 98.6 F 80 20 150/68 H 99 07/06/18 12:00 07/06/18 12:00 07/06/18 12:00 07/06/18 12:00 07/06/18 12:00 Intake & Output 07/05/18 07/06/18 07/07/18 06:59 06:59 06:59 Intake Total 2032 2880 Output Total 650 700 Balance 1382 2180 Weight 106.4 kg 109.5 kg General appearance: PRESENT: no acute distress, well-developed, well-nourished Head exam: PRESENT: atraumatic, normocephalic Eye exam: PRESENT: conjunctiva pink, EOMI, PERRLA. ABSENT: scleral icterus Ear exam: PRESENT: normal external ear exam Mouth exam: PRESENT: moist, tongue midline Neck exam: ABSENT: carotid bruit, JVD, lymphadenopathy, thyromegaly Respiratory exam: PRESENT: clear to auscultation pam. ABSENT: rales, rhonchi, wheezes Cardiovascular exam: PRESENT: RRR. ABSENT: diastolic murmur, rubs, systolic murmur Pulses: PRESENT: normal dorsalis pedis pul Vascular exam: PRESENT: normal capillary refill GI/Abdominal exam: PRESENT: normal bowel sounds, soft. ABSENT: distended, guarding, mass, organolmegaly, rebound, tenderness Rectal exam: PRESENT: deferred Extremities exam: PRESENT: full ROM. ABSENT: calf tenderness, clubbing, pedal edema Neurological exam: PRESENT: alert, awake, oriented to place, oriented to time, CN II-XII grossly intact, other - somewhat confused. ABSENT: motor sensory deficit Psychiatric exam: PRESENT: appropriate affect, normal mood Skin exam: PRESENT: dry, intact, warm. ABSENT: cyanosis, rash Results Laboratory Results: 07/04/18 06:37 07/04/18 06:37 Impressions: Chest X-Ray 07/01/18 00:06 IMPRESSION: There is no acute pleural-parenchymal process seen in the imaged lung araujo. Mild to moderate cardiomegaly Assessment & Plan - Time Time Spent with patient: 15-24 minutes Medications reviewed and adjusted accordingly: Yes Anticipated discharge: Acute Rehab Within: within 48 hours, when bed available - Inpatient Certification Based on my medical assessment, after consideration of the patient's comorbidities, presenting symptoms, or acuity I expect that the services needed warrant INPATIENT care.: Yes Medical Necessity: Need Close Monitoring Due to Risk of Patient Decompensation, Risk of Complication if Not Cared For in Hospital - Plan Summary Plan Summary: 1.Sepsis secondary to urinary tract infection resolved 2. Urinary tract infection secondary to enterococcus. Day #3 on Po ampicillin. 3. Thrombo-cytopenia--chronic, no intervention planned 4. Discharge plan is for acute rehab. DC once bed available
[2018-07-06] MEDS: INSULIN LISPRO 100 UNIT/ML 3 ML VIAL SUBCUT PRN (22:06)
[2018-07-06] MEDS: ATORVASTATIN CALCIUM 10 MG TABLET PO SCH (22:06)
[2018-07-06] MEDS: SERTRALINE HCL 50 MG TABLET PO SCH (22:07)
[2018-07-07] MEDS: AMPICILLIN TRIHYD 500 MG CAPSULE PO SCH ×3 (00:43→12:13)
[2018-07-07] MEDS: GLIMEPIRIDE 1 MG TABLET PO SCH (08:28)
[2018-07-07] MEDS: METFORMIN HCL 500 MG TABLET PO SCH (08:28)
--- NOTE | 2018-07-07 09:52 | PDOC TRANSFER SUMMARY ---
General - Admit/Disc Date/PCP Admission Date/Primary Care Provider: 07/01/18 03:21 KAVON PULLIAM MD Discharge Date: 07/07/18 - Discharge Diagnosis (1) Sepsis Is this a current diagnosis for this admission?: Yes (2) UTI (urinary tract infection) Is this a current diagnosis for this admission?: Yes (3) Encephalopathy acute Is this a current diagnosis for this admission?: Yes (4) Thrombocytopenia Is this a current diagnosis for this admission?: Yes (5) Dementia Is this a current diagnosis for this admission?: Yes (6) Obesity (BMI 35.0-39.9 without comorbidity) Is this a current diagnosis for this admission?: Yes - Additional Information Discharge Diet: Diabetic Discharge Activity: Activity As Tolerated Home Medications: Atorvastatin Calcium [Lipitor 10 mg Tablet] 10 mg PO QHS 07/01/18 Baclofen [Baclofen 10 mg Tablet] 10 mg PO TID 07/01/18 Finasteride [Proscar 5 mg Tablet] 5 mg PO DAILY 07/01/18 Glimepiride [Amaryl 1 mg Tablet] 1 mg PO BID 07/01/18 Losartan Potassium [Cozaar 50 mg Tablet] 50 mg PO DAILY 07/01/18 Metformin HCl [Glucophage XR 500 mg Tablet] 500 mg PO TID 07/01/18 Metoprolol Tartrate [Lopressor 25 mg Tablet] 25 mg PO Q12 07/01/18 Sertraline HCl [Zoloft 50 mg Tablet] 50 mg PO DAILY 07/01/18 Ampicillin Trihydrate [Princepen 500 mg Capsule] 500 mg PO Q6 4 Days capsule Carboxymethylcellulose Sodium [Refresh Plus 0.5% Oph Soln 0.4 ml Droperette] 1 drop OU Q12 droperette 07/07/18 History of Present Illness Admission Date/PCP: 07/01/18 03:21 KAVON PULLIAM MD History of Present Illness: TRACI FLORES is a 78 year old male ENRIQUE FLORES is a 78 year old male presents to the emergency department with fever. Patient has an underlying diagnosis of dementia, is alert oriented x2 at baseline per family reported to the emergency department that he was acutely altered beyond his baseline. Patient is also complaining of left flank pain. No family currently present at bedside. Patient is alert oriented x2 at this time. Does not appear to be any acute distress. He is very hard of hearing and unable to provide much meaningful history of present illness. According to conversation with family patient becomes more altered when he has an infection, particularly urinary tract infection. Patient currently denies pain or burning with urination or hematuria. Hospital Course Hospital Course: Patient was admitted with a change in mental status. He was found to be septic with an elevated lactic acid. Patient was ultimately found to have a urinary tract infection secondary to enterococcus. He has received appropriate antibiotics which will be complete with an outpatient oral ampicillin course. His mental status has improved although apparently still not back at baseline. He does have underlying vascular dementia and patient has a history of old cerebrovascular accident. He also has a history of chronic thrombocytopenia that is being managed by research program intern in [place] and his platelet count ranged between 28 and 39 but with no evidence of bleeding and so no acute interventions required. Patient has otherwise been hemodynamically stable. His antihypertensives may need adjustment and he is hypoglycemic agent may also need to be adjusted. Due to his acute illness he is physically deconditioned and it is felt that he would benefit from acute rehabilitation so is been discharged for physical therapy and rehabilitation. Patient is a full code. Physical Exam Vital Signs: Temp Pulse Resp BP Pulse Ox 97.9 F 64 17 126/61 H 98 07/07/18 00:00 07/07/18 00:00 07/07/18 00:00 07/07/18 00:00 07/07/18 00:00 Intake & Output 07/06/18 07/07/18 07/08/18 06:59 06:59 06:59 Intake Total 2880 1176 Output Total 700 175 Balance 2180 1001 Weight 109.5 kg 103.8 kg General appearance: PRESENT: no acute distress, obese, well-developed, well- nourished Head exam: PRESENT: atraumatic, normocephalic Eye exam: PRESENT: conjunctiva pink, EOMI, PERRLA. ABSENT: scleral icterus Ear exam: PRESENT: normal external ear exam Mouth exam: PRESENT: moist, tongue midline Neck exam: ABSENT: carotid bruit, JVD, lymphadenopathy, thyromegaly Respiratory exam: PRESENT: clear to auscultation pam. ABSENT: rales, rhonchi, wheezes Cardiovascular exam: PRESENT: RRR. ABSENT: diastolic murmur, rubs, systolic murmur Pulses: PRESENT: normal dorsalis pedis pul Vascular exam: PRESENT: normal capillary refill GI/Abdominal exam: PRESENT: normal bowel sounds, soft. ABSENT: distended, guarding, mass, organolmegaly, rebound, tenderness Rectal exam: PRESENT: deferred Extremities exam: PRESENT: full ROM. ABSENT: calf tenderness, clubbing, pedal edema Neurological exam: PRESENT: alert, awake, oriented to place, motor sensory deficit Psychiatric exam: PRESENT: appropriate affect, normal mood. ABSENT: homicidal ideation, suicidal ideation Skin exam: PRESENT: dry, intact, warm. ABSENT: cyanosis, rash Results Laboratory Results: 07/04/18 06:37 07/04/18 06:37 Impressions: Chest X-Ray 07/01/18 00:06 IMPRESSION: There is no acute pleural-parenchymal process seen in the imaged lung araujo. Mild to moderate cardiomegaly Transfer Plan - Disposition Transfer Plan: [facility] - Time Spent with Patient Time spent with patient: Greater than 30 Minutes Qualifiers - * PATIENT BEING DISCHARGED WITH ANY OF THE FOLLOWING DIAGNOSIS: No
[2018-07-07] MEDS: FAMOTIDINE 20 MG TABLET PO SCH (10:48)
[2018-07-07] MEDS: FINASTERIDE 5 MG TABLET PO SCH (10:48)
[2018-07-07] MEDS: LOSARTAN POTASSIUM 50 MG TABLET PO SCH (10:48)
[2018-07-07] MEDS: METOPROLOL TARTRATE 25 MG TABLET PO SCH (10:48)
[2018-07-07] MEDS: BACLOFEN 10 MG TABLET PO SCH ×2 (10:49→15:03)
[2018-07-07] MEDS: CARBOXYMETHYLCELLULOSE SOD 0.5% 0.4 ML DROPERETTE OU SCH (10:49)
[2018-07-07] MEDS ORDERED: ONDANSETRON HCL INJ/PF 4 MG/2 ML SDV IV PRN (13:00)
[2018-07-07 14:28] VITALS: BP 143/65
== END 2018-07-07 15:50 | DRG 872 ==
LOC: ER 23:45 → EH 07-01 03:21 → 5 07-01 05:58
PROVIDERS: ADMIT Family Medicine; ATTEND Family Medicine
DX: A41.9 Sepsis, unspecified organism (principal); N39.0 Urinary tract infection, site not specified; D69.6 Thrombocytopenia, unspecified; F03.90 Unspecified dementia, unspecified severity, without behavioral disturbance, psychotic disturbance, mood disturbance, and anxiety; E66.9 Obesity, unspecified; Z68.35 Body mass index [BMI] 35.0-35.9, adult; B95.2 Enterococcus as the cause of diseases classified elsewhere; F01.50 Vascular dementia, unspecified severity, without behavioral disturbance, psychotic disturbance, mood disturbance, and anxiety; E78.00 Pure hypercholesterolemia, unspecified; I10 Essential (primary) hypertension; E11.9 Type 2 diabetes mellitus without complications; F32.9 Major depressive disorder, single episode, unspecified; D64.9 Anemia, unspecified; I25.2 Old myocardial infarction; Z23 Encounter for immunization; Z79.899 Other long term (current) drug therapy; Z86.73 Personal history of transient ischemic attack (TIA), and cerebral infarction without residual deficits; Z95.1 Presence of aortocoronary bypass graft
CPT/HCPCS: 36415; 51701; 71045; 80048; 80053; 80202; 81001; 82140; 82803; 82962; 83605; 84484; 85025; 85610; 87040; 87086; 87088; 87186; 90471; 90686; 93005; 93010; 96365; 99285; C1758; G0008; G8978-GP; G8979-GP; G8987-GO; G8988-GO; G8989-GO; J0456; J0696; J1650; J1815; J3370; J3490; J7030; J7060; S0028

== ENCOUNTER 2019-03-24 17:00 | Emergency (ER) | payer MEDICARE, OTHER ==
[2019-03-24 17:10] VITALS: BP 125/57
--- NOTE | 2019-03-24 17:41 | ER Document Report ---
ED Medical Screen (RME) - General Chief Complaint: Fall Injury Stated Complaint: FALL/RIGHT SHOUDLER PAIN Time Seen by Provider: 03/24/19 17:39 Primary Care Provider: VASILE OAKES MD [Primary Care Provider] - Follow up as needed Mode of Arrival: Wheelchair Information source: Patient, Relative - Notes: 78-year-old male presented to ED for complaint of right shoulder and left flank pain since this afternoon. states that they were in the shower she was trying to help him get out when he fell causing them both to tumble and she is not sure what he hit. She states that when it first happened they had EMS come out and everything was okay she states a couple hours later when he tried to get up out of his recliner he started having right shoulder and left flank pain and is not able to put any weight on the right shoulder and hurts every time he moves in the right flank. She states he has a history of brain bleed fractured right hip diabetes blood pressure cholesterol anemia right hip surgery and a 5 way bypass. Patient is alert mostly oriented but states she has had some problems with him since his brain bleed. She states he fell about 1130 but did not complain of pain to at least 2 hours later. I have greeted and performed a rapid initial assessment of this patient. A comprehensive ED assessment and evaluation of the patient, analysis of test results and completion of medical decision making process will be conducted by an additional ED providers. Dictation of this chart was performed using voice recognition software; therefore, there may be some unintended grammatical errors. TRAVEL OUTSIDE OF THE [place] IN LAST 30 DAYS: No - Related Data Allergies/Adverse Reactions: codeine Adverse Reaction (Verified 03/24/19 17:01) Confusion Past Medical History - Social History Chew tobacco use (# tins/day): No Frequency of alcohol use: None Drug Abuse: None - Past Medical History Cardiac Medical History: Reports: Hx Heart Attack - 1998 , Hx Hypercholesterolemia, Hx Hypertension Denies: Hx Coronary Artery Disease Pulmonary Medical History: Denies: Hx Bronchitis, Hx COPD, Hx Pneumonia Neurological Medical History: Reports: Hx Cerebrovascular Accident - HEMORRHAGIC, RESIDUAL R HEMIPARESIS. Denies: Hx Seizures Endocrine Medical History: Reports: Hx Diabetes Mellitus Type 2 Renal/ Medical History: Denies: Hx Peritoneal Dialysis Musculoskeltal Medical History: Denies Hx Arthritis Psychiatric Medical History: Reports: Hx Depression Past Surgical History: Reports: Hx Cardiac Surgery - bypass x 5, Hx Coronary Artery Bypass Graft, Hx Orthopedic Surgery - right hip - Immunizations Hx Diphtheria, Pertussis, Tetanus Vaccination: No Physical Exam - Vital signs Vitals: Temp Pulse Resp BP Pulse Ox 97.6 F 69 16 125/57 L 95 03/24/19 17:07 03/24/19 17:07 03/24/19 17:07 03/24/19 17:07 03/24/19 17:07 Course - Vital Signs Vital signs: Temp Pulse Resp BP Pulse Ox 97.6 F 69 16 125/57 L 95 03/24/19 17:07 03/24/19 17:07 03/24/19 17:07 03/24/19 17:07 03/24/19 17:07 Doctor's Discharge - Discharge Referrals: VASILE OAKES MD [Primary Care Provider] - Follow up as needed
[2019-03-24] MEDS ORDERED: NORMAL SALINE 1000 ML 1,000 ML IV ONE (17:43)
[2019-03-24 19:02] LABS: ALANINE AMINOTRANSFERASE 42 U/L (21-72); ALBUMIN 4.4 g/dL (3.5-5.0); ALKALINE PHOSPHATASE 72 U/L (38-126); ANION GAP 13 (5-19); ASPARTATE AMINO TRANSFERASE 53 U/L (17-59); BILIRUBIN,DIRECT 0.4 mg/dL (0.0-0.4); BLOOD UREA NITROGEN 13 mg/dL (7-20); CALCIUM 10.3 mg/dL (8.4-10.2); CARBON DIOXIDE 25 mmol/L (22-30); CHLORIDE 102 mmol/L (98-107); GLUCOSE 191 mg/dL (75-110); POTASSIUM 4.3 mmol/L (3.6-5.0); SODIUM 139.7 mmol/L (137-145); TOTAL PROTEIN 7.7 g/dL (6.3-8.2)
[2019-03-24 19:04] LABS: INTERNATIONAL RATION (INR) 1.18; PROTHROMBIN TIME 15.1 SEC (11.4-15.4)
[2019-03-24 19:05] LABS: PARTIAL THROMBOPLASTIN TIME 33.9 SEC (23.5-35.8)
[2019-03-24] MEDS ORDERED: ACETAMINOPHEN 325 MG TABLET PO ONE (19:33)
--- NOTE | 2019-03-24 21:15 | RADIOLOGY REPORT (SQ) ---
EXAM DESCRIPTION: XR SHOULDER 2 OR MORE VIEWS COMPLETED DATE/TME: 03/24/2019 20:24 CLINICAL HISTORY: 78 years Male fall pain COMPARISON: None. TECHNIQUE: RIGHT shoulder two view FINDINGS: The glenohumeral joint appears intact. No evidence of fracture of humerus. There is some irregularity involving the distal clavicle. Nondisplaced fracture is not excluded. Acromioclavicular joint appears maintained. IMPRESSION: Question nondisplaced fracture of the distal clavicle versus normal variation in bony architecture
== END 2019-03-24 21:13 | disposition left against medical advice (07) ==
LOC: ER 17:00
DX: M25.511 Pain in right shoulder (principal); R10.9 Unspecified abdominal pain; W18.2XXA Fall in (into) shower or empty bathtub, initial encounter; Y93.89 Activity, other specified; E11.9 Type 2 diabetes mellitus without complications; I10 Essential (primary) hypertension; Z53.20 Procedure and treatment not carried out because of patient's decision for unspecified reasons
CPT/HCPCS: 99281; 96360; 36415; 85610; 85730; 80053; 73030; J7030

== ENCOUNTER 2019-09-15 20:55 | Emergency (ER) | payer MEDICARE, OTHER ==
[2019-09-15] MEDS ORDERED: ACETAMINOPHEN 325 MG TABLET PO ONE (22:29)
--- NOTE | 2019-09-15 22:31 | ER Document Report ---
ED Fall - General Chief Complaint: Fall Injury Stated Complaint: RIGHT ARM/LEG PAIN Time Seen by Provider: 09/15/19 22:14 Primary Care Provider: TRESSA CAZARES MD [Primary Care Provider] - Follow up as needed Mode of Arrival: Medic Information source: Relative Cannot obtain history due to: Dementia TRAVEL OUTSIDE OF THE [place] IN LAST 30 DAYS: No - HPI Occurred: Other - Today Where: Other - [facility] Context: Fell from standing Associated symptoms: Other - Pain in right elbow and right leg. Location of injury/pain: Elbow, Lower extremity, Other - Patient has a problem with standing and walking. Patient fell while in the bathroom this afternoon without loss of consciousness or any significant injuries noted. No deformities of any extremities no bruise sharp anywhere and patient states all he really needs to some Tylenol and he would be fine. 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 His family members present report that he has constantly complaining of pain in his right lower extremity for the past 15 years on a daily basis. His right elbow is really the only new complaint since the fall today. Quality of pain: Achy Severity: Mild Pain Level: 1 - Related data Allergies/Adverse Reactions: codeine Adverse Reaction (Verified 03/24/19 17:01) Confusion Home Medications: List from SNF Past Medical History - General Information source: Relative - Social History Smoking Status: Never Smoker Family History: Reviewed & Not Pertinent Patient has suicidal ideation: No Patient has homicidal ideation: No - Past Medical History Cardiac Medical History: Reports: Hx Heart Attack - 1998 , Hx Hypercholesterolemia, Hx Hypertension Denies: Hx Coronary Artery Disease Pulmonary Medical History: Denies: Hx Bronchitis, Hx COPD, Hx Pneumonia Neurological Medical History: Reports: Hx Cerebrovascular Accident - HEMORRHAGIC, RESIDUAL R HEMIPARESIS. Denies: Hx Seizures Endocrine Medical History: Reports: Hx Diabetes Mellitus Type 2 Renal/ Medical History: Denies: Hx Peritoneal Dialysis Musculoskeletal Medical History: Denies Hx Arthritis Psychiatric Medical History: Reports: Hx Depression Past Surgical History: Reports: Hx Cardiac Surgery - bypass x 5, Hx Coronary Artery Bypass Graft, Hx Orthopedic Surgery - right hip - Immunizations Hx Diphtheria, Pertussis, Tetanus Vaccination: No Hx Pneumococcal Vaccination: 09/28/10 Review of Systems - Review of Systems Constitutional: See HPI EENT: No symptoms reported, See HPI Cardiovascular: No symptoms reported, See HPI Respiratory: No symptoms reported Gastrointestinal: No symptoms reported Genitourinary: No symptoms reported, Other - Chronic dehydration with concentrated appearing urine Male Genitourinary: No symptoms reported Musculoskeletal: See HPI Skin: No symptoms reported Hematologic/Lymphatic: Other - History of thrombocytopenia Neurological/Psychological: Dementia Physical Exam - Vital signs Vitals: Temp Pulse Resp BP Pulse Ox 97.6 F 73 17 155/66 H 99 09/15/19 21:04 09/15/19 21:04 09/15/19 21:04 09/15/19 21:04 09/15/19 21:04 Interpretation: Normal - General General appearance: Appears well, Alert - HEENT Head: Normocephalic, Atraumatic Eyes: Normal Pupils: PERRL - Respiratory Respiratory status: No respiratory distress Chest status: Nontender Breath sounds: Normal Chest palpation: Normal - Cardiovascular Rhythm: Regular Heart sounds: Normal auscultation Murmur: No - Abdominal Inspection: Normal Distension: No distension Bowel sounds: Normal Tenderness: Nontender Organomegaly: No organomegaly - Back Back: Normal, Nontender - Extremities General upper extremity: Normal inspection, Nontender, Normal color, Normal ROM, Normal temperature General lower extremity: Normal inspection, Nontender, Normal color, Normal ROM, Normal temperature, Normal weight bearing. No: Cirilo's sign Elbow: Other - Contracture deformity of the right elbow unable to fully extend. No swelling or soft tissue injury noted and nontender on palpation. Hip: Nontender Knee: Tender - Right knee and lower leg with chronic pain. No deformity noted appears to be a contraction at the at the knee area - Neurological Neuro grossly intact: Yes Cognition: Normal Orientation: AAOx4, Disoriented to time [place] Coma Scale Eye Opening: Spontaneous [place] Coma Scale Verbal: Oriented Dean Coma Scale Motor: Obeys Commands Dean Coma Scale Total: 15 Speech: Normal Motor strength normal: LUE, RUE, LLE, RLE Sensory: Normal - Psychological Associated symptoms: Normal affect, Normal mood - Skin Skin Temperature: Warm Skin Moisture: Dry Skin Color: Normal Course - Vital Signs Vital signs: Temp Pulse Resp BP Pulse Ox 97.6 F 73 17 155/66 H 99 09/15/19 21:10 09/15/19 21:04 09/15/19 21:10 09/15/19 21:04 09/15/19 21:10 Discharge - Discharge Clinical Impression: Chronic pain of right elbow Accidental fall Qualifiers: Encounter type: initial encounter Qualified Code(s): W19.XXXA - Unspecified fall, initial encounter Condition: Stable Disposition: HOME, SELF-CARE Additional Instructions: I recommend Tylenol as needed as needed pain as he has been done. The exam shows a decrease in mental ability called dementia. Signs of dementia include a gradual loss of memory and a decreased ability to reason and solve problems. Personality changes, hostility, lack of self-care, and loss of bladder or bowel control are later signs of dementia. In these later stages, patients may become confused, lost, fearful, or agitated, even in familiar places. Alzheimer's disease is the most common type of dementia. It has no known cause or specific treatment. Other causes include alcohol and drug abuse, medication effects (especially tranquilizers and sleeping pills), strokes, head injuries, and brain tumors. Sometimes severe depression in an elderly person is mistaken for dementia, and this can be treated if recognized. A complete medical evaluation and ongoing care with a doctor is important. Most people with dementia need help or supervision with daily living. Some may be able to live independently with occasional help; others require foster care or even [facility] placement. Alcohol, sedatives, and antihistamines may make the symptoms worse and should be avoided. Alzheimer's disease support groups are available in some communities and can be very valuable to the entire family. Prescription medication can ease the symptoms of Alzheimer's disease in some patients. Please arrange for medical follow-up. Return here if there is a sudden change in mental function, inability to move an arm or leg, inability to speak, fever, or any other significant change. Inasmuch as patient has had a stroke in the past and has poor skills with ambulation and balance it is very important that patient is not left unattended in the bathroom or when he is attempting to walking. Hopefully during the rehabilitation at the rehab center that there will be improvement in his gait balance and ambulatory skills. Referrals: TRESSA CAZARES MD [Primary Care Provider] - Follow up as needed
[2019-09-16 00:23] VITALS: BP 156/89
== END 2019-09-16 00:23 | disposition home or self-care (01) ==
LOC: ER 20:55
DX: G89.29 Other chronic pain (principal); M79.602 Pain in left arm; M79.604 Pain in right leg; W01.0XXA Fall on same level from slipping, tripping and stumbling without subsequent striking against object, initial encounter; Y92.002 Bathroom of unspecified non-institutional (private) residence as the place of occurrence of the external cause; E78.00 Pure hypercholesterolemia, unspecified; I10 Essential (primary) hypertension; E11.9 Type 2 diabetes mellitus without complications; I25.2 Old myocardial infarction; Z88.6 Allergy status to analgesic agent
CPT/HCPCS: 99283; A9270